=== PATIENT | female | born 1960 | race African-American/Black ===

== ENCOUNTER 2016-12-25 15:40 | Emergency (ER) | payer OTHER ==
[2016-12-25] MEDS ORDERED: Dexamethasone 10 MG/ML VIAL ONE (17:10)
[2016-12-25] MEDS ORDERED: Ketorolac Tromethamine 30 MG/ML VIAL ONE (17:10)
[2016-12-25 17:58] LABS: #Basophils 0.1 thou/uL (0.0-0.2); #Eosinphils 0.3 thou/uL (0.0-0.7); #Lymphocytes 2.9 thou/uL (1.20-3.40); #Monocytes 0.8 thou/uL (0.11-0.59); #Neutrophils 3.4 thou/uL (1.40-6.50); %Basophils 1.7 % (0.0-1.0); %Eosinophils 3.5 % (0.0-10.0); %Lymphocytes 39.1 % (21.0-51.0); %Monocytes 10.7 % (0.0-10.0); Hematocrit 40.8 % (36.0-47.0); Mean Platelet Volume 8.4 fL (7.4-10.4); Red Blood Cell (RBC) Count 4.33 mill/uL (4.20-5.40); White Blood Cell (WBC) Count 7.5 thou/uL (4.8-10.8)
[2016-12-25 18:08] LABS: ALT (SGPT) 15 U/L (8-55); AST (SGOT) 24 U/L (5-34); Alkaline Phosphatase 119 U/L (40-150); Anion Gap 17 mmol/L (10-20); BUN (Urea Nitrogen) 22 mg/dL (9.8-20.1); Bilirubin, Total 0.2 mg/dL (0.2-1.2); Calc. Creatinine Clearance 0 mL/min (70-130); Calcium 9.7 mg/dL (7.8-10.44); Carbon Dioxide 25 mmol/L (22-29); Chloride 100 mmol/L (98-107); Estimated GFR-MDRD 72; Globulin 4.3 g/dL (2.4-3.5); Magnesium 2.6 mg/dL (1.6-2.6); Protein, Total 8.6 g/dL (6.0-8.3)
[2016-12-25 18:55] LABS: Bilirubin Negative (Negative); Blood, Urine Negative (Negative); Glucose, Urine (Dipstick) Negative (Negative); Ketone, Urine Negative (Negative); Nitrite Negative (Negative); Protein, Urine (Dipstick) Negative (Neg-Trace); Urobilinogen 0.2 mg/dL (0.2-1.0)
[2016-12-25] MEDS ORDERED: Diazepam 5 MG TAB ONE (19:14)
--- NOTE | 2016-12-25 19:35 | RAD ---
RADIOGRAPH LUMBAR SPINE 3 VIEWS: DATE: 12/25/2016 HISTORY: A 56-year-old female with low back pain and right lumbar radiculopathy. COMPARISON: 02/19/2012 FINDINGS: There are five lumbar type vertebrae. No major scoliosis. Vertebral body heights are maintained. There is straightening of the lumbar lordosis. Mild to moderate disk space narrowing at L3-L4 with small endpoint marginal osteophytes. Mild to moderate disk space narrowing at L5-S1. No interval c hange overall. IMPRESSION: 1. Loss of lordosis, suggestive of muscle spasm. 2. Modest degenerative disk changes at L3-L4 and at L5-S1. FRANCIS [] POS: [facility]
--- NOTE | 2016-12-25 20:39 | ULT ---
ULTRASOUND WITH DOPPLER DUPLEX VENOUS LOWER EXTREMITY RIGHT: HISTORY: A 56-year-old female with right lower extremity pain. TECHNIQUE: Color flow Doppler, spectral waveform analysis of pulsed Doppler, and stephens-scale imaging with compre ssion and augmentation, were used to evaluate the right common femoral, femoral, popliteal, posterio r tibial, and superficial femoral, veins; and the proximal portions of the profunda femoral and grea ter saphenous, veins. FINDINGS: There is normal compressibility, demonstration of blood flow by color Doppler and pulsed Doppler, an d response to augmentation, in all interrogated veins. IMPRESSION: Negative. No deep vein thrombosis in the right lower extremity. jn [] POS: [facility]
== END 2016-12-25 19:56 | disposition home or self-care (01) ==
LOC: ERS 15:40
DX: M54.16 Radiculopathy, lumbar region (principal); E78.5 Hyperlipidemia, unspecified; E11.9 Type 2 diabetes mellitus without complications; F41.9 Anxiety disorder, unspecified; F32.9 Major depressive disorder, single episode, unspecified; G62.9 Polyneuropathy, unspecified; G43.909 Migraine, unspecified, not intractable, without status migrainosus; I10 Essential (primary) hypertension; Z79.82 Long term (current) use of aspirin; Z79.84 Long term (current) use of oral hypoglycemic drugs; Z79.899 Other long term (current) drug therapy
CPT/HCPCS: 36415; 72100; 80053; 81003; 83735; 85025; 85379; 86140; 96361; 96374; 96375; J1100; J1885; J2270

== ENCOUNTER 2017-04-18 16:10 | Emergency (ER) | payer OTHER ==
[2017-04-18 16:39] LABS: #Basophils 0.2 thou/uL (0.0-0.2); #Eosinphils 0.2 thou/uL (0.0-0.7); #Lymphocytes 3.6 thou/uL (1.20-3.40); #Monocytes 0.6 thou/uL (0.11-0.59); #Neutrophils 3.5 thou/uL (1.40-6.50); %Basophils 2.2 % (0.0-1.0); %Eosinophils 2.6 % (0.0-10.0); %Lymphocytes 44.2 % (21.0-51.0); %Monocytes 7.5 % (0.0-10.0); %Neutrophils 43.4 % (42.0-75.0); Hemoglobin 14.4 g/dL (12.0-16.0); Mean Corpuscular HGB CONC 32.2 g/dL (32.0-36.0); Mean Corpuscular Hemoglobin 30.6 pg (27.0-31.0); Mean Platelet Volume 8.8 fL (7.4-10.4); Platelet Count 260 thou/uL (130-400); RBC Distribution Width 12.1 % (11.5-14.5)
[2017-04-18 17:00] LABS: ALT (SGPT) 13 U/L (8-55); AST (SGOT) 19 U/L (5-34); Alkaline Phosphatase 107 U/L (40-150); Anion Gap 14 mmol/L (10-20); BUN (Urea Nitrogen) 11 mg/dL (9.8-20.1); Bilirubin, Total 0.4 mg/dL (0.2-1.2); Calc. Creatinine Clearance 0 mL/min (70-130); Calcium 10.5 mg/dL (7.8-10.44); Carbon Dioxide 25 mmol/L (22-29); Chloride 102 mmol/L (98-107); Estimated GFR-MDRD 77; Globulin 4.2 g/dL (2.4-3.5); Glucose 76 mg/dL (70-105); Potassium 3.7 mmol/L (3.5-5.1); Protein, Total 9.2 g/dL (6.0-8.3); Sodium 137 mmol/L (136-145)
[2017-04-18 17:09] LABS: Bilirubin Negative (Negative); Blood, Urine Negative (Negative); Clarity CLEAR (Clear); Glucose, Urine (Dipstick) Negative (Negative); Leukocyte Small (Negative); Nitrite Negative (Negative); Protein, Urine (Dipstick) Negative (Neg-Trace); Specific Gravity, Urine 1.024 (1.002-1.036); Urobilinogen 0.2 mg/dL (0.2-1.0); pH, Urine 5.5 (5.0-9.0)
[2017-04-18 17:13] LABS: Bacteria/HPF Rare-Few HPF (None Seen); Hyaline Casts/LPF 0-3 HYALINE CAST LPF (0-3 Hyaline); RBC/HPF 0-3 HPF (0-3)
[2017-04-18] MEDS ORDERED: Mag-Al 1200 mg/1200 mg/30 ML UDCUP ONE (19:32)
[2017-04-18] MEDS ORDERED: HYDROcodone/Acetaminophen 10/325 mg Tablet ONE (19:32)
[2017-04-18] MEDS ORDERED: Lidocaine Viscous Sol 2% 15 ml UD Cup ONE (19:49)
== END 2017-04-18 20:15 | disposition home or self-care (01) ==
LOC: ERS 16:10
DX: K21.9 Gastro-esophageal reflux disease without esophagitis (principal); E11.40 Type 2 diabetes mellitus with diabetic neuropathy, unspecified; E78.5 Hyperlipidemia, unspecified; I10 Essential (primary) hypertension; F41.9 Anxiety disorder, unspecified; F32.9 Major depressive disorder, single episode, unspecified
CPT/HCPCS: 36415; 80053; 81003; 81015; 83690; 85025; 87086

== ENCOUNTER 2017-04-19 13:51 | Emergency (ER) | payer OTHER ==
[2017-04-19] MEDS ORDERED: ISOVUE-370 76%-LOCM 1 ML ONE (14:30)
[2017-04-19] MEDS ORDERED: Ondansetron ODT 4 MG TAB ONE (15:50)
[2017-04-19 17:28] LABS: #Basophils 0.2 thou/uL (0.0-0.2); #Eosinphils 0.3 thou/uL (0.0-0.7); #Lymphocytes 3.5 thou/uL (1.20-3.40); #Monocytes 0.6 thou/uL (0.11-0.59); #Neutrophils 3.4 thou/uL (1.40-6.50); %Basophils 2.5 % (0.0-1.0); %Eosinophils 3.2 % (0.0-10.0); %Lymphocytes 44.2 % (21.0-51.0); %Monocytes 7.2 % (0.0-10.0); %Neutrophils 42.9 % (42.0-75.0); Hemoglobin 13.7 g/dL (12.0-16.0); Mean Corpuscular HGB CONC 32.4 g/dL (32.0-36.0); Mean Corpuscular Hemoglobin 30.5 pg (27.0-31.0); Mean Corpuscular Volume 94.3 fl (81.0-99.0); Mean Platelet Volume 8.9 fL (7.4-10.4); Platelet Count 283 thou/uL (130-400); RBC Distribution Width 12.2 % (11.5-14.5); Red Blood Cell (RBC) Count 4.47 mill/uL (4.20-5.40); White Blood Cell (WBC) Count 7.9 thou/uL (4.8-10.8)
[2017-04-19 17:50] LABS: ALT (SGPT) 12 U/L (8-55); AST (SGOT) 22 U/L (5-34); Alkaline Phosphatase 95 U/L (40-150); Anion Gap 11 mmol/L (10-20); BUN (Urea Nitrogen) 12 mg/dL (9.8-20.1); Bilirubin, Total 0.3 mg/dL (0.2-1.2); Calc. Creatinine Clearance 0 mL/min (70-130); Calcium 10.2 mg/dL (7.8-10.44); Carbon Dioxide 33 mmol/L (22-29); Chloride 98 mmol/L (98-107); Estimated GFR-MDRD 76; Globulin 4.4 g/dL (2.4-3.5); Glucose 84 mg/dL (70-105); Lipase 54 U/L (8-78); Potassium 3.7 mmol/L (3.5-5.1); Protein, Total 9.4 g/dL (6.0-8.3); Sodium 138 mmol/L (136-145)
[2017-04-19] MEDS ORDERED: Mag-Al 1200 mg/1200 mg/30 ML UDCUP ONE (18:49)
[2017-04-19] MEDS ORDERED: Lidocaine 2% PF 100 mg/5 ml Syringe ONE (18:50)
[2017-04-19] MEDS ORDERED: Lidocaine Viscous Sol 2% 15 ml UD Cup ONE (18:50)
--- NOTE | 2017-04-19 19:40 | CT ---
CT ABDOMEN AND PELVIS WITH CONTRAST: 04/19/17 Multiple axial tomograms obtained through the abdomen and pelvis with IV enhancement. HISTORY: Abdominal pain. FINDINGS: The lung bases are clear. The liver, spleen, and pancreas are unremarkable. Adrenal glands and kidneys are unremarkable. No arik dence of hydronephrosis. Urinary bladder unremarkable. No urinary tract calculus seen. Small bowel loops appear normal. Appendix appears normal. Prominent stool in the right and transverse colon. The left colon is poorly distended. There are a few scattered diverticula. No definite CT arik dence of diverticulitis identified. Aorta is normal caliber. Images through the pelvis show unremarkable uterus and adnexa. IMPRESSION: No acute process identified. POS: [facility]
== END 2017-04-19 19:01 | disposition home or self-care (01) ==
LOC: ERS 13:51
DX: K29.70 Gastritis, unspecified, without bleeding (principal); E11.40 Type 2 diabetes mellitus with diabetic neuropathy, unspecified; E78.5 Hyperlipidemia, unspecified; I10 Essential (primary) hypertension; F41.9 Anxiety disorder, unspecified; F32.9 Major depressive disorder, single episode, unspecified; Z79.82 Long term (current) use of aspirin; Z79.899 Other long term (current) drug therapy; Z79.84 Long term (current) use of oral hypoglycemic drugs
CPT/HCPCS: 36415; 74177; 80053; 81003; 81015; 83690; 85025; 87086; 96360; 99284; J2001; Q0162

== ENCOUNTER 2017-04-21 14:20 | Emergency (ER) | payer OTHER ==
[2017-04-21] MEDS ORDERED: Metoprolol Tartrate 5 MG/5 ML VIAL ONE (15:12)
[2017-04-21] MEDS ORDERED: hydrALAZINE 20 MG/ML VIAL ONE (15:15)
--- NOTE | 2017-04-21 15:23 | RAD ---
CHEST 1 VIEW: Date: 04/21/17 HISTORY: Chest pain. COMPARISON: 04/18/15. FINDINGS: Portable upright chest demonstrates a normal cardiac silhouette. Pulmonary vessels and hilum are norm al. Costophrenic angles are clear. No mass. No consolidation. No pneumothorax or osseous abnormalitie s. IMPRESSION: No acute cardiopulmonary process. POS: [facility]
[2017-04-21 15:35] LABS: #Basophils 0.1 thou/uL (0.0-0.2); #Eosinphils 0.2 thou/uL (0.0-0.7); #Lymphocytes 2.8 thou/uL (1.20-3.40); #Monocytes 0.4 thou/uL (0.11-0.59); #Neutrophils 3.1 thou/uL (1.40-6.50); %Basophils 1.8 % (0.0-1.0); %Eosinophils 2.9 % (0.0-10.0); %Lymphocytes 42.5 % (21.0-51.0); %Monocytes 6.6 % (0.0-10.0); %Neutrophils 46.2 % (42.0-75.0); Hemoglobin 13.4 g/dL (12.0-16.0); Mean Corpuscular HGB CONC 32.7 g/dL (32.0-36.0); Mean Corpuscular Hemoglobin 30.9 pg (27.0-31.0); Mean Corpuscular Volume 94.5 fl (81.0-99.0); Mean Platelet Volume 9.6 fL (7.4-10.4); Platelet Count 265 thou/uL (130-400); RBC Distribution Width 12.3 % (11.5-14.5); Red Blood Cell (RBC) Count 4.34 mill/uL (4.20-5.40); White Blood Cell (WBC) Count 6.7 thou/uL (4.8-10.8)
[2017-04-21 16:00] LABS: CKMB 0.6 ng/mL (0-6.6); Troponin I Less than 0.010 ng/mL (< 0.028)
[2017-04-21 17:10] LABS: Albumin 4.5 g/dL (3.5-5.0)
[2017-04-21 17:11] LABS: Chloride 104 mmol/L (98-107); Potassium 3.9 mmol/L (3.5-5.1); Sodium 140 mmol/L (136-145)
[2017-04-21 17:13] LABS: Globulin 3.8 g/dL (2.4-3.5); Glucose 85 mg/dL (70-105); Protein, Total 8.3 g/dL (6.0-8.3)
[2017-04-21 17:14] LABS: Anion Gap 13 mmol/L (10-20); Bilirubin, Total 0.4 mg/dL (0.2-1.2); Carbon Dioxide 27 mmol/L (22-29)
[2017-04-21 17:15] LABS: Alkaline Phosphatase 71 U/L (40-150)
[2017-04-21 17:16] LABS: Calc. Creatinine Clearance 0 mL/min (70-130); Estimated GFR-MDRD 86
[2017-04-21 17:17] LABS: BUN (Urea Nitrogen) 9 mg/dL (9.8-20.1)
[2017-04-21 17:18] LABS: ALT (SGPT) 12 U/L (8-55); AST (SGOT) 19 U/L (5-34)
[2017-04-21 17:19] LABS: Lipase 33 U/L (8-78)
[2017-04-21] MEDS ORDERED: Mag-Al 1200 mg/1200 mg/30 ML UDCUP ONE (17:44)
[2017-04-21] MEDS ORDERED: Lidocaine Viscous Sol 2% 15 ml UD Cup ONE (17:44)
== END 2017-04-21 18:24 | disposition home or self-care (01) ==
LOC: ERS 14:20
DX: R11.2 Nausea with vomiting, unspecified (principal); R19.7 Diarrhea, unspecified; R07.9 Chest pain, unspecified; E11.40 Type 2 diabetes mellitus with diabetic neuropathy, unspecified; E78.5 Hyperlipidemia, unspecified; I10 Essential (primary) hypertension; F41.9 Anxiety disorder, unspecified; F32.9 Major depressive disorder, single episode, unspecified; Z79.84 Long term (current) use of oral hypoglycemic drugs; Z79.899 Other long term (current) drug therapy; Z79.82 Long term (current) use of aspirin
CPT/HCPCS: 36415; 71045; 80053; 82553; 83690; 84484; 85025; 93005; 96374; J0360

== ENCOUNTER 2017-04-22 01:47 | Emergency (ER) | payer OTHER ==
[2017-04-22] MEDS ORDERED: Ketorolac Tromethamine 30 MG/ML VIAL ONE (02:44)
[2017-04-22] MEDS ORDERED: Metoclopramide HCl 10 MG/2 ML VIAL ONE (02:44)
[2017-04-22] MEDS ORDERED: diphenhydrAMINE 50 MG/ML VIAL ONE (02:44)
== END 2017-04-22 04:35 | disposition home or self-care (01) ==
LOC: ERS 01:47
DX: R51 Headache (principal); E11.40 Type 2 diabetes mellitus with diabetic neuropathy, unspecified; E78.5 Hyperlipidemia, unspecified; I10 Essential (primary) hypertension; F31.9 Bipolar disorder, unspecified; F20.9 Schizophrenia, unspecified; Z79.84 Long term (current) use of oral hypoglycemic drugs; Z79.82 Long term (current) use of aspirin; Z79.899 Other long term (current) drug therapy; R11.2 Nausea with vomiting, unspecified; R19.7 Diarrhea, unspecified; R07.9 Chest pain, unspecified; F41.9 Anxiety disorder, unspecified; F32.9 Major depressive disorder, single episode, unspecified
CPT/HCPCS: 36415; 71045; 80053; 82553; 83690; 84484; 85025; 93005; 96365; 96374; 96375; J0360; J1200; J1885; J2765

== ENCOUNTER 2017-07-22 17:52 | Observation (INO) | payer OTHER ==
[2017-07-22 18:24] VITALS: BMI 31.1
[2017-07-22] MEDS ORDERED: Ondansetron ODT 4 MG TAB PO PRN (18:28)
[2017-07-22] MEDS ORDERED: Ondansetron HCl/PF 4 MG/2 ML Vial SLOW IVP PRN (18:32)
[2017-07-22] MEDS ORDERED: Nitroglycerin 0.4 MG TAB (25 Tab Bottle) SL PRN (18:33)
[2017-07-22] MEDS ORDERED: Acetaminophen 500 MG TAB PO PRN (18:33)
--- NOTE | 2017-07-22 18:58 | PDOC.EVN ---
Attending Addendum - Attending Addendum Date/Time: 07/22/17 1794 I personally evaluated the patient and discussed the management with Dr. Houston/ Haim. I agree with the History, Examination, Assessment and Plan documented in the H& P with any addition or exceptions noted below. Patient is 56 yo AAF with suspected history of CAD, HTN, T2DM who presents as direct admission from our clinic today. Patient with history of heart catheterization that was aborted due to patient description of "nerve injury" several years ago. She reports that over the last few months she has been having sharp, intermittent, left sided chest pain with radiation to L arm. Reports that this is associated with nausea, dizziness, and palpitations. She reports that the pain usually occurs at rest, never on exertion. Reports that it is improved with Nitro but not resolved, and reports having to use Nitro tabs 4x over the last 1 month. Reports that symptoms have been worsening over the last couple of weeks. She reports that her DM and HTN are well controlled. Patient had EKG in clinic that apparently showed possible ischemia and so was sent over for further evaluation. Vital signs and lab studies are pending at this time, as is EKG. Her telemetry strip appears normal. Patient will be admitted as observation status to telemetry. Would perform enzyme and EKG rule out for this atypical chest pain with concern for anginal type symptoms. Recommend stress testing in AM if overnight testing normal. Further management including cardiology consult pending results of current studies unless she has onset of chest pain or abnormal diagnostics, at which point I would begin treating with th. lovenox and antiplatelet therapy.
[2017-07-22 19:18] LABS: #Basophils 0.1 thou/uL (0.0-0.2); #Eosinphils 0.2 thou/uL (0.0-0.7); #Lymphocytes 3.1 thou/uL (1.20-3.40); #Monocytes 0.6 thou/uL (0.11-0.59); %Basophils 1.6 % (0.0-1.0); %Lymphocytes 38.2 % (21.0-51.0); %Neutrophils 50.2 % (42.0-75.0); Hemoglobin 12.7 g/dL (12.0-16.0); Mean Corpuscular HGB CONC 33.5 g/dL (32.0-36.0); Mean Corpuscular Hemoglobin 30.9 pg (27.0-31.0); Mean Corpuscular Volume 92.1 fl (81.0-99.0); Mean Platelet Volume 8.5 fL (7.4-10.4); Platelet Count 268 thou/uL (130-400); RBC Distribution Width 12.3 % (11.5-14.5)
--- NOTE | 2017-07-22 19:38 | PDOC.FPRHP ---
- History of Present Illness Chief Complaint: Chest pain, nausea, dizziness, palpitations History of Present Illness: 56 yo F w/ PMH of DMII, HTN, HLD, GERD, AJITH and depression presents as direct admit from [facility] for evaluation of atypical chest pain and possible EKG changes. Pt reports left sided chest pain that she describes as sharp and intermittent with radiation into her left arm for the last two weeks, non-exertional, and not relieved by rest or worsened by physical activity. She reports these symptoms happen when at rest and are mildly relieved with nitro. She normally takes nitro 1-2x/month but has taken 4 nitro over the last month 2/2 the above symptoms. Also reports some associated sob, dizziness, palpitations and nausea. She denies diphoresis. Does endorse a dry cough over the same time period which she attributes to allergies. Denies pleuritic type chest pain, diarrhea, constipation, fever, chills, sweats, headache, changes in vision. ED Course: NA - Allergies/Adverse Reactions Allergies Allergy/AdvReac Type Severity Reaction Status Date / Time cheese Allergy Verified 04/18/15 20:16 Penicillins Allergy Verified 04/18/15 20:16 - Home Medications Medication Instructions Recorded Confirmed Type Sertraline HCl [Zoloft] 100 mg PO DAILY 08/11/13 07/22/17 History Atorvastatin Calcium [Lipitor] 40 mg PO HS 04/18/15 07/22/17 History metFORMIN HCl 1,000 mg PO BID-WM 04/18/15 07/22/17 History Aspirin 81 mg PO DAILY #0 tab 04/22/15 07/22/17 Rx Gabapentin 600 mg PO TID #0 tablet 04/22/15 07/22/17 Rx Lisinopril/Hydrochlorothiazide 1 tablet PO DAILY #30 tablet 04/22/15 07/22/17 Rx [Lisinopril-Hctz 20-25 mg Tab] Pantoprazole [Protonix] 40 mg PO DAILY #30 tab 04/22/15 07/22/17 Rx - History PMHx: HTN, HLD, DMII, Tranaminitis, AJITH, Depression, Neuropathy PSHx: Pat, elective ab FHx: Paternal MD @ 51, Maternal Ca unknown type Social: Non-smoker, social alcohol, denies drugs - Review of Systems General: denies: fever/chills, weight/appetite/sleep changes, fatigue Eyes: denies: eye pain, vision changes ENT: denies: nasal congestion, rhinorrhea Respiratory: reports: cough, congestion, shortness of breath, exercise intolerance Cardiovascular: reports: chest pain, palpitation. denies: edema Gastrointestinal: reports: nausea. denies: vomiting, diarrhea, constipation, abdominal pain Skin: denies: rashes, lesions Musculoskeletal: reports: pain. denies: tenderness, swelling, arthritis/ arthralgias Neurological: reports: other (paresthesias RLE). denies: numbness, syncope, weakness - Vital signs BP: 127/57 HR: 61 RR: 12 Tmax: 97.6 Pox: 99% on RA Wt: 88Kg - Physical Exam Constitutional: NAD, awake, alert and oriented HEENT: normocephalic and atraumatic, PERRLA, EOMI, conjunctiva clear, no scleral icterus, grossly normal vision, grossly normal hearing, MMM, oropharynx clear Neck: supple, FROM, trachea midline, no JVD, no thyromegaly Chest: no-tender to palpation Heart: RRR, normal S1/S2, no murmurs/rubs/gallops, pulses present, no edema Lungs: CTAB, no respiratory distress, good air movement, no rales/rhonchi, no wheezing, no retractions Abdomen: soft, non-tender, bowel sounds present, no masses/distention Musculoskeletal: normal tone, ROM grossly normal Neurological: no focal deficit Skin: no rash/lesions, good turgor, capillary refill <2 seconds, no jaundice Heme/Lymphatic: no unusual bruising or bleeding, no petechia Psychiatric: normal mood and affect FMR H&P: Results - Labs Result Diagrams: 07/22/17 19:11 07/22/17 19:11 Lab results: WBC 8.0 thou/uL (4.8-10.8) 07/22/17 19:11 Hgb 12.7 g/dL (12.0-16.0) 07/22/17 19:11 Hct 37.8 % (36.0-47.0) 07/22/17 19:11 MCV 92.1 fl (81.0-99.0) 07/22/17 19:11 Plt Count 268 thou/uL (130-400) 07/22/17 19:11 Neutrophils % 50.2 % (42.0-75.0) 07/22/17 19:11 FMR H&P: A/P - Problem List (1) Atypical chest pain Current Visit: No Status: Acute Code(s): R07.89 - OTHER CHEST PAIN (2) Diabetes type 2, controlled Current Visit: No Status: Chronic Code(s): E11.9 - TYPE 2 DIABETES MELLITUS WITHOUT COMPLICATIONS (3) HTN (hypertension) Current Visit: No Status: Chronic Code(s): I10 - ESSENTIAL (PRIMARY) HYPERTENSION Qualifiers: Hypertension type: essential hypertension Qualified Code(s): I10 - Essential (primary) hypertension (4) HLD (hyperlipidemia) Current Visit: No Status: Chronic Code(s): E78.5 - HYPERLIPIDEMIA, UNSPECIFIED Qualifiers: Hyperlipidemia type: Pure hypercholesterolemia (5) GERD (gastroesophageal reflux disease) Current Visit: No Status: Chronic Code(s): K21.9 - GASTRO-ESOPHAGEAL REFLUX DISEASE WITHOUT ESOPHAGITIS (6) Anxiety Current Visit: No Status: Chronic Code(s): F41.9 - ANXIETY DISORDER, UNSPECIFIED - Plan 1) Atypical chest pain: Admit to tele obs. Significant risk factors. Will repeat EKG and get cxr, Trend cardiac enzymes and plan for AM stress test. NPO at midnight. Nitro prn for anginal type pain, daily ASA. 2) HTN: Continue home meds 3) HLD: Cont home meds 4) GERD: continue home meds 5) Anxiety: continue home medications 6) PPX: SCDs and Protonix for DVT and GI ppx, respectively 7) Code status: Pt wishes to be full code. Disposition/LOS: stable, </= 2 days FMR H&P: Upper Level - Pertinent history 56yo AAF with pmhx DM2, HTN, HLD, neuropathy, and GERD presents to [facility] as a direct admit from clinic at [facility] today due to concern for chest pain. Pt states she previously used NTG q month but over the last month has needed approx. 4 doses per month. States her chest pain always occurs at rest, never with exertion. Associated with radiation of pain into left arm with tingling. Symptoms are usually preceded by lightheadedness, nausea and palpitations. Has never experienced symptoms during exertion. Denies any prior MD or CAD hx, however does state that cardiology previously attempted catheterization which was aborted due to nerve injury during procedure. Family hx significant for paternal MD at age 52. Denies any tobacco abuse. HEART =3 - Pertinent findings Pertinent PE-- Gen- A&O, NAD CV- RRR, no MRG Lungs- CTAB Abd- soft, nt, nd LE- no edema MSK- RLE ttp due to nerve injury. no reproducible chest pain. Labs- pending CXR- pending EKG- pending - Plan Date/Time: 07/22/17 193 56yo AAF with pmhx DM2, HTN, HLD, GERD, neuropathy p/w- 1) Atypical Chest pain- obs in tele overnight. Check EKG, Ghassan, and risk stratify. HEART = 3. Will plan for Stress in AM unless pt develops anginal symptoms and will then place patient on anticoagulation + antiplatelet therapy at that time & consult cards. Tx with ASA now, prn ntg. NPO @ mn pending stress. 2) HTN- continue home rx 3) HLD- continue high intensity statin 4) DM2- continue rx, CC diet 5) GERD- continue PPI I, [Rosa Whitmore DO ([email or web address])], have evaluated this patient and agree with findings/plan as outlined by communications marketing intern resident. Pertinent changes/additions are listed here.
[2017-07-22 19:39] LABS: ALT (SGPT) 23 U/L (8-55); AST (SGOT) 22 U/L (5-34); Albumin 4.7 g/dL (3.5-5.0); Alkaline Phosphatase 82 U/L (40-150); Anion Gap 13 mmol/L (10-20); BUN (Urea Nitrogen) 12 mg/dL (9.8-20.1); Bilirubin, Total 0.6 mg/dL (0.2-1.2); Calc. Creatinine Clearance 97 mL/min (70-130); Calcium 10.3 mg/dL (7.8-10.44); Carbon Dioxide 27 mmol/L (22-29); Chloride 101 mmol/L (98-107); Estimated GFR-MDRD 80; Globulin 4.2 g/dL (2.4-3.5); Glucose 88 mg/dL (70-105); Potassium 3.8 mmol/L (3.5-5.1); Protein, Total 8.9 g/dL (6.0-8.3); Sodium 137 mmol/L (136-145)
[2017-07-22 19:42] LABS: CKMB 0.5 ng/mL (0-6.6); Troponin I Less than 0.010 ng/mL (< 0.028)
[2017-07-22] MEDS ORDERED: Aspirin 325 mg Enteric Coated Tablet PO SCH (20:15)
[2017-07-22] MEDS: Gabapentin 300 MG CAP PO SCH (21:19)
[2017-07-22] MEDS: Atorvastatin Calcium 40 MG TAB PO SCH (21:26)
--- NOTE | 2017-07-22 21:50 | RAD ---
AP VIEW OF THE CHEST: 07/22/17 INDICATION: Atypical chest pain. COMPARISON: Prior exam dated 04/21/17. IMPRESSION: No acute cardiopulmonary abnormality. The examination is not appreciably changed fro the comparison s cristhian. POS: [facility]
[2017-07-22 22:19] LABS: CKMB 0.5 ng/mL (0-6.6); Troponin I Less than 0.010 ng/mL (< 0.028)
[2017-07-23 01:08] LABS: CKMB 0.4 ng/mL (0-6.6); Troponin I Less than 0.010 ng/mL (< 0.028)
--- NOTE | 2017-07-23 05:59 | PDOC.FM ---
- Subjective Subjective: Patient is doing well this morning. She reports continued episodes of CP overnight that lasted 15-30min and then resolved. She denies abdominal pain, N/ V, diaphoresis, or SOB during events. No acute events overnight. - Objective MAR Reviewed: Yes Vital Signs & Weight: Vital Signs (12 hours) Temp Pulse Resp BP Pulse Ox 07/23/17 03:55 97.8 F 56 L 20 106/51 L 93 L 07/22/17 23:50 54 L 18 108/60 96 07/22/17 21:20 97.6 F 61 12 07/22/17 18:20 97.6 F 61 12 127/57 L 99 Weight Weight 87.543 kg I&O: 07/21/17 07/22/17 07/23/17 06:59 06:59 06:59 Intake Total 600 Balance 600 Result Diagrams: 07/22/17 19:11 07/22/17 19:11 <Melany Oliva - Last Filed: 07/23/17 10:41> - Objective Vital Signs & Weight: Vital Signs (12 hours) Temp Pulse Resp BP BP Pulse Ox 07/23/17 08:22 56 L 157/74 H 07/23/17 07:28 97.8 F 56 L 20 07/23/17 07:17 97.6 F 54 L 12 157/74 H 98 07/23/17 03:55 97.8 F 56 L 20 106/51 L 93 L 07/22/17 23:50 54 L 18 108/60 96 Weight Weight 87.543 kg I&O: 07/22/17 07/23/17 07/24/17 06:59 06:59 06:59 Intake Total 600 Balance 600 Result Diagrams: 07/22/17 19:11 07/22/17 19:11 <Matt Loving R - Last Filed: 07/23/17 10:51> Phys Exam - Physical Examination Constitutional: NAD HEENT: moist MMs Respiratory: no wheezing, no rales, clear to auscultation bilateral Cardiovascular: RRR, no significant murmur no chest wall tenderness with palpation Gastrointestinal: soft, non-tender, positive bowel sounds Musculoskeletal: no edema, pulses present Neurological: non-focal Psychiatric: normal affect, A&O x 3 <Melany Oliva - Last Filed: 07/23/17 10:41> Dx/Plan (1) Atypical chest pain Code(s): R07.89 - OTHER CHEST PAIN Status: Acute (2) Anxiety Code(s): F41.9 - ANXIETY DISORDER, UNSPECIFIED Status: Chronic (3) Depression Code(s): F32.9 - MAJOR DEPRESSIVE DISORDER, SINGLE EPISODE, UNSPECIFIED Status : Chronic (4) Diabetes mellitus Code(s): E11.9 - TYPE 2 DIABETES MELLITUS WITHOUT COMPLICATIONS Status: Chronic (5) GERD (gastroesophageal reflux disease) Code(s): K21.9 - GASTRO-ESOPHAGEAL REFLUX DISEASE WITHOUT ESOPHAGITIS Status: Chronic (6) HLD (hyperlipidemia) Code(s): E78.5 - HYPERLIPIDEMIA, UNSPECIFIED Status: Chronic QualifierTitle: Hyperlipidemia type: Pure hypercholesterolemia (7) HTN (hypertension) Code(s): I10 - ESSENTIAL (PRIMARY) HYPERTENSION Status: Chronic QualifierTitle: Hypertension type: essential hypertension Qualified Code( s): I10 - Essential (primary) hypertension - Plan Plan: Atypical chest pain: - CAD vs GERD, significant risk factors with Fhx and DM, HTN, HLD - Trops negative x3, EKG wnl - stress test this AM, NPO until after - continue daily ASA HTN: - Well controlled, actually borderline hypotensive, but asymptomatic - Patient reports home BP's 120's/80's. - Continue current medication and evaluate outpatient for possiblity of decreasing home meds. Isolated events of hypotensive BP not enough to change BP at this time. HLD: - FLP to risk stratify - Cont home meds GERD: - not taking home medications for some time - restart home protonix Anxiety: - continue home medications <Melany Oliva - Last Filed: 07/23/17 10:41> Attending Addendum - Attending Addendum Date/Time: 07/23/17 1051 I personally evaluated the patient and discussed the management with Dr. Oliva. I agree with the History, Examination, Assessment and Plan documented above with any addition or exceptions noted below. Patient here with atypical chest pain. Her enzyme rule out has been negative. She is scheduled for nuclear stress testing this morning. If negative, can discharge home with resumption of GERD medications. If positive, will consult Cardiology. Dispo pending stress test result. <Matt Loving R - Last Filed: 07/23/17 10:51>
[2017-07-23 06:48] LABS: Cardiac Risk 4.3 (Less than 4.5)
[2017-07-23] MEDS: metFORMIN 500 MG TAB PO SCH ×2 (07:35→16:36)
[2017-07-23] MEDS: Gabapentin 300 MG CAP PO SCH ×3 (07:35→20:06)
[2017-07-23] MEDS: Aspirin 325 MG TAB PO SCH (08:22)
[2017-07-23] MEDS ORDERED: Lisinopril/Hydrochlorothiazide 20/25 mg Tablet PO SCH (09:00)
[2017-07-23] MEDS ORDERED: Aspirin 325 MG TAB PO SCH (09:00)
[2017-07-23] MEDS ORDERED: Enoxaparin Sodium 40 MG/0.4 ML SYRINGE SC SCH (09:00)
[2017-07-23] MEDS: Atorvastatin Calcium 40 MG TAB PO SCH (20:06)
[2017-07-24] MEDS: metFORMIN 500 MG TAB PO SCH (07:00)
--- NOTE | 2017-07-24 07:49 | PDOC.FM ---
- Subjective Subjective: Patient is doing well this morning. She was to get a stress test yesterday but had an episode of hypotension while there in the 80's systolic. She reports she did feel dizzy at that time and had been nauseated yesterday morning. She denies any other episodes of dizziness overnight, although reports occasionally when she stands over the last 2 weeks. She reports her CP has resovled. - Objective MAR Reviewed: Yes Vital Signs & Weight: Vital Signs (12 hours) Temp Pulse Resp BP Pulse Ox 07/24/17 07:17 98.2 F 59 L 16 07/24/17 05:28 94 L 07/24/17 04:00 98.2 F 59 L 16 128/66 94 L 07/23/17 23:30 118/59 L 07/23/17 20:08 98.3 F 60 12 Weight Weight 89.358 kg I&O: 07/23/17 07/24/17 07/25/17 06:59 06:59 06:59 Intake Total 600 1450 Output Total 650 Balance 600 800 Result Diagrams: 07/22/17 19:11 07/22/17 19:11 <Melany Oliva - Last Filed: 07/24/17 07:48> - Objective Vital Signs & Weight: Vital Signs (12 hours) Temp Pulse Resp BP Pulse Ox 07/24/17 10:23 59 L 07/24/17 07:17 98.2 F 59 L 16 07/24/17 07:15 98.1 F 65 18 120/68 92 L 07/24/17 05:28 94 L 07/24/17 04:00 98.2 F 59 L 16 128/66 94 L 07/23/17 23:30 118/59 L Weight Weight 89.358 kg I&O: 07/23/17 07/24/17 07/25/17 06:59 06:59 06:59 Intake Total 600 1450 Output Total 650 Balance 600 800 Result Diagrams: 07/22/17 19:11 07/22/17 19:11 <Matt Loving - Last Filed: 07/24/17 10:54> Phys Exam - Physical Examination Constitutional: NAD Respiratory: no wheezing, no rales, clear to auscultation bilateral Cardiovascular: RRR, no significant murmur Gastrointestinal: soft Musculoskeletal: no edema, pulses present Neurological: moves all 4 limbs Psychiatric: normal affect, A&O x 3 <Melany Oliva - Last Filed: 07/24/17 07:48> Dx/Plan (1) Atypical chest pain Code(s): R07.89 - OTHER CHEST PAIN Status: Acute (2) Anxiety Code(s): F41.9 - ANXIETY DISORDER, UNSPECIFIED Status: Chronic (3) Depression Code(s): F32.9 - MAJOR DEPRESSIVE DISORDER, SINGLE EPISODE, UNSPECIFIED Status : Chronic (4) Diabetes mellitus Code(s): E11.9 - TYPE 2 DIABETES MELLITUS WITHOUT COMPLICATIONS Status: Chronic (5) GERD (gastroesophageal reflux disease) Code(s): K21.9 - GASTRO-ESOPHAGEAL REFLUX DISEASE WITHOUT ESOPHAGITIS Status: Chronic (6) HLD (hyperlipidemia) Code(s): E78.5 - HYPERLIPIDEMIA, UNSPECIFIED Status: Chronic QualifierTitle: Hyperlipidemia type: Pure hypercholesterolemia (7) HTN (hypertension) Code(s): I10 - ESSENTIAL (PRIMARY) HYPERTENSION Status: Chronic QualifierTitle: Hypertension type: essential hypertension Qualified Code( s): I10 - Essential (primary) hypertension (8) Hypotension Status: Acute - Plan Plan: Atypical chest pain: - CAD vs GERD, significant risk factors with Fhx and DM, HTN, HLD - Trops negative x3, EKG wnl - stress test this AM, NPO until after - continue daily ASA Hypotension: - has had borderline hypotension throughout her stay. - Will decrease home Lisinopril/HCTZ and monitor. HTN: - Patient reports home BP's 120's/80's - see above HLD: - FLP to risk stratify - Cont home meds GERD: - not taking home medications for some time - restart home protonix Anxiety: - continue home medications <Melany Oliva - Last Filed: 07/24/17 07:48> Attending Addendum - Attending Addendum Date/Time: 07/24/17 1053 I personally evaluated the patient and discussed the management with Dr. Oliva. I agree with the History, Examination, Assessment and Plan documented above with any addition or exceptions noted below. Patient doing well and has no chest pains. We are awaiting results of stress testing currently being performed. If negative, can discharge home with outpatient follow up at our clinic. If abnormal, will consult Cardiology. <Matt Loving R - Last Filed: 07/24/17 10:54>
[2017-07-24] MEDS ORDERED: Lisinopril/Hydrochlorothiazide 20 mg/12.5 mg Tablet PO SCH (09:00)
[2017-07-24] MEDS ORDERED: ADENOSINE 60 MG/20 ML VIAL ONE (09:47)
[2017-07-24] MEDS: Aspirin 325 MG TAB PO SCH (10:23)
[2017-07-24] MEDS: Gabapentin 300 MG CAP PO SCH ×2 (10:23→14:14)
--- NOTE | 2017-07-24 12:56 | NM ---
MYOCARDIAL PERFUSION STUDY: DATE: 07/24/17. HISTORY: Chest pain. RADIOPHARMACEUTICALS: 30 mCi Technetium 99m sestamibi, IV at stress, and 10 mCi Technetium 99m sestamibi, IV at rest. MEDICATIONS: 16.4 mL (49.3 mg) adenosine, IV. FINDINGS: There is normal uptake and distribution of radiotracer seen throughout the left ventricular myocardi um on both the resting and stress acquisitions. There is no significant reversible defect seen betwe en stress and resting acquisitions. Gated images show normal ventricular wall motion and wall thicke ingrid. The calculated left ventricular ejection fraction is 74%. The calculated left ventricular eje ction fraction on the prior study in 2009 was 59%. IMPRESSION: 1. Normal myocardial perfusion study without evidence of a reversible defect seen to suggest ischemi a. 2. Normal left ventricular ejection fraction of 74%. POS: [facility]
[2017-07-24 15:49] VITALS: BP 130/60; TEMP 98.6
--- NOTE | 2017-08-01 13:17 | EKG ---
Test Reason : TIMED Blood Pressure : / mmHG Vent. Rate : 064 BPM Atrial Rate : 064 BPM P-R Int : 208 ms QRS Dur : 108 ms QT Int : 424 ms P-R-T Axes : 015 -60 -13 degrees QTc Int : 437 ms Normal sinus rhythm Left axis deviation Incomplete right bundle branch block T wave abnormality, consider anterolateral ischemia Abnormal ECG When compared with ECG of 21-APR-2017 14:32, Incomplete right bundle branch block is now Present Criteria for Septal infarct are no longer Present Confirmed by DR. Cassandra MIRANDA ([id number]) on 08/01/2017 1:17:14 PM Referred By: KENAN Confirmed By:DR. Cassandra MIRANDA
== END 2017-07-24 17:03 | disposition home or self-care (01) ==
LOC: 2SW 17:52
PROVIDERS: ADMIT Student in an Organized Health Care Education/Training Program; ATTEND Student in an Organized Health Care Education/Training Program
DX: R07.89 Other chest pain (principal); E11.9 Type 2 diabetes mellitus without complications; I10 Essential (primary) hypertension; E78.5 Hyperlipidemia, unspecified; K21.9 Gastro-esophageal reflux disease without esophagitis; F41.9 Anxiety disorder, unspecified; Z79.899 Other long term (current) drug therapy; Z88.0 Allergy status to penicillin; Z91.018 Allergy to other foods; Z79.82 Long term (current) use of aspirin; Z79.84 Long term (current) use of oral hypoglycemic drugs
CPT/HCPCS: 36415; 36416; 71045; 78452; 80053; 80061; 82553; 84443; 84484; 85025; 93005; 93010; 93017; A9500; G0378; J0153; Q0162

== ENCOUNTER 2017-08-10 14:17 | Emergency (ER) | payer OTHER ==
[2017-08-10] MEDS ORDERED: Morphine 4 MG/ML VIAL ONE (16:03)
== END 2017-08-10 16:20 | disposition home or self-care (01) ==
LOC: ERS 14:17
DX: M54.31 Sciatica, right side (principal); E11.40 Type 2 diabetes mellitus with diabetic neuropathy, unspecified; E78.5 Hyperlipidemia, unspecified; F31.9 Bipolar disorder, unspecified; F41.9 Anxiety disorder, unspecified; F20.9 Schizophrenia, unspecified; I10 Essential (primary) hypertension; K21.9 Gastro-esophageal reflux disease without esophagitis
CPT/HCPCS: 96372; J2270

== ENCOUNTER 2017-09-02 14:37 | Inpatient (IN) | payer OTHER ==
[2017-09-02 15:23] LABS: #Basophils 0.1 thou/uL (0.0-0.2); #Eosinphils 0.2 thou/uL (0.0-0.7); #Lymphocytes 2.7 thou/uL (1.20-3.40); #Monocytes 0.7 thou/uL (0.11-0.59); #Neutrophils 5.1 thou/uL (1.40-6.50); %Basophils 1.5 % (0.0-1.0); %Eosinophils 2.3 % (0.0-10.0); %Lymphocytes 30.3 % (21.0-51.0); %Monocytes 8.1 % (0.0-10.0); %Neutrophils 57.8 % (42.0-75.0); Hemoglobin 12.6 g/dL (12.0-16.0); Mean Corpuscular HGB CONC 34.5 g/dL (32.0-36.0); Mean Corpuscular Hemoglobin 31.1 pg (27.0-31.0); Mean Corpuscular Volume 90.2 fL (78.0-98.0); Mean Platelet Volume 7.8 fL (7.4-10.4); Platelet Count 288 thou/uL (130-400); RBC Distribution Width 12.8 % (11.5-14.5); Red Blood Cell (RBC) Count 4.05 mill/uL (4.20-5.40); White Blood Cell (WBC) Count 8.8 thou/uL (4.8-10.8)
[2017-09-02 15:51] LABS: ALT (SGPT) 22 U/L (8-55); AST (SGOT) 23 U/L (5-34); Albumin 4.6 g/dL (3.5-5.0); Alkaline Phosphatase 79 U/L (40-150); Anion Gap 15 mmol/L (10-20); BUN (Urea Nitrogen) 17 mg/dL (9.8-20.1); Bilirubin, Total 0.4 mg/dL (0.2-1.2); Calc. Creatinine Clearance 0 mL/min (70-130); Calcium 9.9 mg/dL (7.8-10.44); Carbon Dioxide 26 mmol/L (22-29); Chloride 101 mmol/L (98-107); Estimated GFR-MDRD 45; Globulin 3.9 g/dL (2.4-3.5); Glucose 103 mg/dL (70-105); Potassium 3.4 mmol/L (3.5-5.1); Protein, Total 8.5 g/dL (6.0-8.3); Sodium 139 mmol/L (136-145)
[2017-09-02 15:54] LABS: CKMB 0.9 ng/mL (0-6.6); Troponin I Less than 0.010 ng/mL (< 0.028)
--- NOTE | 2017-09-02 15:58 | CT ---
CT BRAIN WITHOUT CONTRAST: Comparison: 04-20-15 History: Speech difficulty and weakness for two days. Technique: Multiple contiguous axial images were obtained in a CT of the brain without contrast. FINDINGS: There are a few scattered hypodensities in the subcortical and periventricular white matter, likely s econdary to small vessel ischemic disease. No large confluent infarction is seen. There is no evidenc e of hydrocephalus, intracranial hemorrhage, or extraaxial fluid collection. The calvarium and overlying soft tissues are unremarkable. Fluid is seen in the bilateral mastoid air cells. IMPRESSION: No evidence of acute intracranial abnormality. POS: [facility]
--- NOTE | 2017-09-02 17:38 | PDOC.FPRHP ---
- History of Present Illness Chief Complaint: Rt sided weakness & can't talk History of Present Illness: 56yo AAF with pmhx HTN, HLD, DM2, GERD and anxiety/depression and a prior h/o rt femoral nerve injury presents with new onset rt sided weakness and difficulty speaking today. States she had been feeling mild right UE & LE weakness for the last 2 days but did not impair functioning until she was at grocery store with this morning. She endorsed new onset right foot drag due to weakness and inability to use right arm. Also has been unable to speak. Does not endorse difficulty swallowing or a choking history. who witnessed event stated she did not have facial droop, drooling or slurred speech , but that her speech slowed and she had to think for a while prior to speaking. No prior h/o CVA or TIA. No family Hx CVA. No smoking hx. ED Course: CT head showing no acute CV event, given ASA - Allergies/Adverse Reactions Allergies Allergy/AdvReac Type Severity Reaction Status Date / Time cheese Allergy Verified 04/18/15 20:16 Penicillins Allergy Verified 04/18/15 20:16 - Home Medications Medication Instructions Recorded Confirmed Type Sertraline HCl [Zoloft] 100 mg PO DAILY 08/11/13 07/22/17 History Atorvastatin Calcium [Lipitor] 40 mg PO HS 04/18/15 07/22/17 History metFORMIN HCl 1,000 mg PO BID-WM 04/18/15 07/22/17 History Aspirin 81 mg PO DAILY #0 tab 04/22/15 07/22/17 Rx Gabapentin 600 mg PO TID #0 tablet 04/22/15 07/22/17 Rx Lisinopril/Hydrochlorothiazide 1 tablet PO DAILY #30 tablet 04/22/15 07/22/17 Rx [Lisinopril-Hctz 20-25 mg Tab] Pantoprazole [Protonix] 40 mg PO DAILY #30 tab 07/23/17 Rx - History PMHx: HTN, HLD, DM2, chronic RLE femoral neuropathy, GERD, anxiety/depression PSHx: cholecystectomy, elective w/ D&C FHx: CAD with paternal [place] in 50s Social: denies TAD - Review of Systems General: denies: fever/chills, weight/appetite/sleep changes, fatigue Eyes: denies: eye pain, vision changes ENT: denies: nasal congestion, rhinorrhea Respiratory: denies: cough, congestion, shortness of breath Cardiovascular: denies: chest pain, palpitation, edema Gastrointestinal: denies: nausea, vomiting, diarrhea, constipation, abdominal pain Genitourinary: denies: dysuria, polyuria Skin: denies: rashes, lesions Musculoskeletal: reports: pain, tenderness. denies: stiffness, swelling, arthritis/arthralgias Neurological: reports: weakness, other (difficulty speaking). denies: numbness , syncope, seizure Psychological: reports: anxiety, depression - Vital signs BP: [135/74] HR: [69] RR: [20] Tmax: [98.1] Pox: [96]% on [RA] Wt: [87kg] - Physical Exam Constitutional: NAD, awake, alert and oriented, well developed HEENT: normocephalic and atraumatic, PERRLA, EOMI, no scleral icterus, grossly normal hearing, normal nasal mucosa, oropharynx clear -HEENT: poor dentition, mildly dry mucus membranes. no facial asymmetry Neck: supple, trachea midline, no LAD, no JVD, no thyromegaly Chest: no lesions Heart: RRR, normal S1/S2, no murmurs/rubs/gallops, no edema Lungs: CTAB, no respiratory distress, good air movement, no rales/rhonchi, no wheezing, no retractions Abdomen: soft, non-tender, bowel sounds present, no masses/distention Musculoskeletal: normal structure, normal tone -Musculoskeletal: dec ROM & strength in RUE & RLE which appears to be due to poor pt effort. RLE pain with ROM Neurological: no focal deficit, CN II-XII intact -Neurological: dec sensation to RUE & RLE, difficult to obtain DTR in either LE Skin: no rash/lesions -Skin: mildly dry appearing skin Heme/Lymphatic: no unusual bruising or bleeding, no LAD Psychiatric: normal mood and affect, intact recent and remote memory FMR H&P: Results - Labs Result Diagrams: 09/02/17 15:15 09/02/17 15:15 Lab results: WBC 8.8 thou/uL (4.8-10.8) 09/02/17 15:15 Hgb 12.6 g/dL (12.0-16.0) 09/02/17 15:15 Hct 36.5 % (36.0-47.0) 09/02/17 15:15 MCV 90.2 fL (78.0-98.0) 09/02/17 15:15 Plt Count 288 thou/uL (130-400) 09/02/17 15:15 Neutrophils % 57.8 % (42.0-75.0) 09/02/17 15:15 Sodium 139 mmol/L (136-145) 09/02/17 15:15 Potassium 3.4 mmol/L (3.5-5.1) L 09/02/17 15:15 Chloride 101 mmol/L (98-107) 09/02/17 15:15 Carbon Dioxide 26 mmol/L (22-29) 09/02/17 15:15 BUN 17 mg/dL (9.8-20.1) 09/02/17 15:15 Creatinine 1.46 mg/dL (0.6-1.1) H 09/02/17 15:15 Glucose 103 mg/dL (70-105) 09/02/17 15:15 Calcium 9.9 mg/dL (7.8-10.44) 09/02/17 15:15 Total Bilirubin 0.4 mg/dL (0.2-1.2) 09/02/17 15:15 AST 23 U/L (5-34) 09/02/17 15:15 ALT 22 U/L (8-55) 09/02/17 15:15 Alkaline Phosphatase 79 U/L (40-150) 09/02/17 15:15 CK-MB (CK-2) 0.9 ng/mL (0-6.6) 09/02/17 15:15 Serum Total Protein 8.5 g/dL (6.0-8.3) H 09/02/17 15:15 Albumin 4.6 g/dL (3.5-5.0) 09/02/17 15:15 Additional comment: Normal labs aside from elevated Cr to 1.46 (baseline 0.8) - EKG Interpretation EKG: reg rate. stable incomplete RBBB. nonspec ST changes - Radiology Interpretation CT scan - head Status: image reviewed by me, report reviewed by me Additional comment: stable old small vessel disease- no acute CV disease FMR H&P: A/P - Problem List (1) Acute kidney failure, unspecified Current Visit: Yes Status: Acute Priority: High Qualifiers: Acute renal failure type: unspecified Qualified Code(s): N17.9 - Acute kidney failure, unspecified (2) Expressive aphasia Current Visit: Yes Status: Acute Priority: High Code(s): R47.01 - APHASIA (3) Right sided weakness Current Visit: Yes Status: Acute Priority: High Code(s): R53.1 - WEAKNESS (4) Chronic leg pain Current Visit: Yes Status: Acute Priority: Medium Code(s): M79.606 - PAIN IN LEG, UNSPECIFIED; G89.29 - OTHER CHRONIC PAIN Qualifiers: Laterality: right Qualified Code(s): M79.604 - Pain in right leg; G89.29 - Other chronic pain; G89.29 - Other chronic pain Comment: acute on chronic (5) Diabetes mellitus Current Visit: No Status: Chronic Priority: Low Code(s): E11.9 - TYPE 2 DIABETES MELLITUS WITHOUT COMPLICATIONS Qualifiers: Diabetes mellitus type: type 2 Diabetes mellitus rehab therapist insulin use: without snf use Diabetes mellitus complication status: without complication Qualified Code(s): E11.9 - Type 2 diabetes mellitus without complications (6) HLD (hyperlipidemia) Current Visit: No Status: Chronic Code(s): E78.5 - HYPERLIPIDEMIA, UNSPECIFIED Qualifiers: Hyperlipidemia type: unspecified Qualified Code(s): E78.5 - Hyperlipidemia , unspecified (7) HTN (hypertension) Current Visit: No Status: Chronic Code(s): I10 - ESSENTIAL (PRIMARY) HYPERTENSION Qualifiers: Hypertension type: essential hypertension Qualified Code(s): I10 - Essential (primary) hypertension (8) Anxiety Current Visit: No Status: Chronic Priority: Low Code(s): F41.9 - ANXIETY DISORDER, UNSPECIFIED (9) Depression Current Visit: No Status: Chronic Priority: Low Code(s): F32.9 - MAJOR DEPRESSIVE DISORDER, SINGLE EPISODE, UNSPECIFIED Qualifiers: Depression Type: major depressive disorder Major depression recurrence: recurrent Active/Remission status: currently active Major depression episode severity: unspecified Qualified Code(s): F33.9 - Major depressive disorder, recurrent, unspecified (10) GERD (gastroesophageal reflux disease) Current Visit: No Status: Chronic Priority: Low Code(s): K21.9 - GASTRO- ESOPHAGEAL REFLUX DISEASE WITHOUT ESOPHAGITIS Qualifiers: Esophagitis presence: esophagitis presence not specified Qualified Code(s) : K21.9 - Gastro-esophageal reflux disease without esophagitis - Plan 1) LESTER- unspecified at this time, but does appear to have low volume status and therefore may be pre-renal. pending u/a with micro, FENa/FEUrea. after urine collected, will then give IVF to rehydrate and await results for further management. consider renal US if not pre-renal. hold nephrotoxins. 2) expressive aphasia & Rt-sided weakness- exam inconsistent and low suspicion for acute CVA at this time. Neg CT head for acute event. s/p ASA. will check FLP & A1c for risk stratification, however chronic medical problems appear well- controlled by prior review of records. NPO until dysphagia screening performed. MRI in am to rule out CVA. If +, will tire changer aircraft. 3) HTN- well controlled. hold home meds, allow permissive HTN due to #2. 4) HLD- continue high-intensity statin. 5) DM2- hold metformin, accuchecks ACHS w/ mild SSI 6) GERD- home meds. 7) chronic RLE neuropathy- given pts concern and pain with Rt calf palpation, will check RLE US to rule out DVT, however low clinical suspicion. continue home gabapentin. 8) anxiety/depression- may be a component of #2. reassurance and continue zoloft. CODE status- FULL FEN- as above Disposition/LOS: Dispo- stable LOS- anticipate 2 day hospital stay FMR H&P: Upper Level - Plan Date/Time: 09/02/17 0953 I, [Rosa Whitmore DO], am the upper level resident.
[2017-09-02] MEDS ORDERED: Diazepam 2 MG TAB PO PRN (17:41)
[2017-09-02] MEDS ORDERED: Ondansetron HCl/PF 4 MG/2 ML Vial IVP PRN (17:41)
[2017-09-02] MEDS ORDERED: Milk Of Magnesia 30 ML UDCUP PO PRN (17:41)
[2017-09-02] MEDS ORDERED: Dextrose 5% in Water 1,000 ML IV PRN (17:41)
[2017-09-02] MEDS ORDERED: Ondansetron ODT 4 MG TAB PO PRN (17:41)
[2017-09-02] MEDS ORDERED: Dextrose 50% Abboject 50 ML SYRINGE SLOW IVP PRN (17:41)
[2017-09-02] MEDS ORDERED: Labetalol HCl 100 MG/20 ML VIAL SLOW IVP PRN (17:41)
[2017-09-02] MEDS ORDERED: Bisacodyl 10 MG SUPP PR PRN (17:41)
[2017-09-02] MEDS ORDERED: HumaLOG 300 UNITS/3 ML VIAL SC PRN ×2 (17:41)
[2017-09-02] MEDS ORDERED: hydrALAZINE 20 MG/ML VIAL SLOW IVP PRN (17:41)
[2017-09-02 17:44] VITALS: BMI 31.1
[2017-09-02 18:51] LABS: Troponin I Less than 0.010 ng/mL (< 0.028)
--- NOTE | 2017-09-02 19:38 | ULT ---
ULTRASOUND WITH DOPPLER DUPLEX VENOUS LOWER EXTREMITY RIGHT: 09/02/17 HISTORY: 56-year-old female with right lower extremity pain. TECHNIQUE: Color flow Doppler, spectral waveform analysis of pulsed Doppler, and stephens-scale imaging with rupinder delvin and augmentation, were used to evaluate the right common femoral, femoral, popliteal, posterior tibial, and superficial femoral, veins; and the proximal portions of the profunda femoral and greater saphenous, veins. FINDINGS: There is normal compressibility, demonstration of blood flow by color Doppler and pulsed Doppler, and response to augmentation, in all interrogated veins. IMPRESSION: Negative. No deep vein thrombosis in the right lower extremity. jn [] POS: [facility]
[2017-09-02] MEDS ORDERED: Sodium Chloride 0.9% 1,000 ML IV SCH (20:00)
[2017-09-02] MEDS: Famotidine 20 MG TAB PO SCH (20:16)
[2017-09-02] MEDS: Docusate 100 MG CAP PO SCH (20:17)
[2017-09-02] MEDS: Gabapentin 100 MG CAP PO SCH (20:17)
[2017-09-02] MEDS: Acetaminophen 325 MG TAB PO PRN (20:17)
[2017-09-02 20:51] LABS: Bilirubin Negative (Negative); Blood, Urine Negative (Negative); Clarity CLEAR (Clear); Glucose, Urine (Dipstick) Negative (Negative); Leukocyte Trace (Negative); Nitrite Negative (Negative); Protein, Urine (Dipstick) Negative (Neg-Trace); Specific Gravity, Urine 1.011 (1.002-1.036); Urobilinogen 0.2 mg/dL (0.2-1.0); pH, Urine 5.5 (5.0-9.0)
[2017-09-02 20:54] LABS: Bacteria/HPF None Seen HPF (None Seen); Hyaline Casts/LPF 0-3 HYALINE CAST LPF (0-3 Hyaline); RBC/HPF 0-3 HPF (0-3); Squamous Epithelial 0-3 HPF (0-3)
[2017-09-02] MEDS ORDERED: Atorvastatin Calcium 40 MG TAB PO SCH (21:00)
[2017-09-02 22:18] LABS: Creatinine, Urine 104.33 mg/dL (47-110)
[2017-09-02 22:19] LABS: Troponin I Less than 0.010 ng/mL (< 0.028)
[2017-09-03 05:52] LABS: #Basophils 0.1 thou/uL (0.0-0.2); #Eosinphils 0.2 thou/uL (0.0-0.7); #Lymphocytes 2.5 thou/uL (1.20-3.40); #Monocytes 0.5 thou/uL (0.11-0.59); #Neutrophils 2.8 thou/uL (1.40-6.50); %Basophils 1.9 % (0.0-1.0); %Monocytes 8.8 % (0.0-10.0); %Neutrophils 45.3 % (42.0-75.0); Hemoglobin 11.3 g/dL (12.0-16.0); Mean Corpuscular HGB CONC 33.2 g/dL (32.0-36.0); Mean Corpuscular Hemoglobin 30.3 pg (27.0-31.0); Mean Corpuscular Volume 91.3 fL (78.0-98.0); Mean Platelet Volume 8.3 fL (7.4-10.4); Platelet Count 232 thou/uL (130-400); Red Blood Cell (RBC) Count 3.72 mill/uL (4.20-5.40); White Blood Cell (WBC) Count 6.1 thou/uL (4.8-10.8)
[2017-09-03 06:21] LABS: Anion Gap 14 mmol/L (10-20); BUN (Urea Nitrogen) 15 mg/dL (9.8-20.1); Calc. Creatinine Clearance 89 mL/min (70-130); Calcium 9.5 mg/dL (7.8-10.44); Carbon Dioxide 27 mmol/L (22-29); Cardiac Risk 3.3 (Less than 4.5); Cholesterol 160 mg/dl (< 200 Desired); Estimated GFR-MDRD 72; Glucose 106 mg/dL (70-105); HDL Cholesterol 49 mg/dL (>60 Neg Risk); LDL Cholesterol, Calculated 84 mg/dL; Potassium 3.7 mmol/L (3.5-5.1); Sodium 141 mmol/L (136-145); Triglycerides 136 mg/dL (Less than 150)
[2017-09-03 06:28] LABS: Chloride 104 mmol/L (98-107)
[2017-09-03] MEDS: Famotidine 20 MG TAB PO SCH (08:35)
[2017-09-03] MEDS: Gabapentin 100 MG CAP PO SCH ×2 (08:35→14:31)
[2017-09-03] MEDS: Docusate 100 MG CAP PO SCH (08:35)
[2017-09-03] MEDS ORDERED: Enoxaparin Sodium 40 MG/0.4 ML SYRINGE SC SCH (09:00)
[2017-09-03] MEDS ORDERED: Aspirin 81 mg Enteric Coated Tablet PO SCH (09:00)
[2017-09-03] MEDS: Acetaminophen 325 MG TAB PO PRN (09:28)
--- NOTE | 2017-09-03 09:39 | PDOC.FM ---
- Subjective Subjective: Pt states R sided weakness is unchanged from yesterday. Her speech is back to normal. She slept well overnight. - Objective MAR Reviewed: Yes Vital Signs & Weight: Vital Signs (12 hours) Temp Pulse Resp BP Pulse Ox 09/03/17 07:17 97.5 F L 60 16 126/62 99 09/03/17 04:00 97.6 F 63 18 109/55 L 97 09/03/17 00:00 98.4 F 62 18 107/52 L 96 Weight Weight 87.679 kg I&O: 09/02/17 09/03/17 09/04/17 06:59 06:59 06:59 Intake Total 1100 Balance 1100 Result Diagrams: 09/03/17 05:23 09/03/17 05:23 EKG Reviewed by me: Yes Radiology Reviewed by me: Yes Radiology: RLE U/S: no DVT Phys Exam - Physical Examination Constitutional: NAD HEENT: PERRLA, moist MMs Neck: supple, full ROM no bruits Respiratory: no wheezing, no rales, no rhonchi, clear to auscultation bilateral Cardiovascular: RRR, no significant murmur Gastrointestinal: soft, non-tender, positive bowel sounds Musculoskeletal: no edema, pulses present Neurological: normal sensation, moves all 4 limbs RUE/RLE strength 3-4/5 with inconsistencies noted; patellar reflexes 2+/4 CN 2-12 intact with no facial droop; no delays in speech Psychiatric: normal affect, A&O x 3 Skin: no rash, normal turgor Dx/Plan (1) Right sided weakness Code(s): R53.1 - WEAKNESS Status: Acute Plan: Intermittent but chronic per hx. Exam noted to be inconsistent in admission notes and similar today. Seems more issue with effort. Brain CT showed chronic changes but nothing acute. RLE doppler neg for DVT. Due to continued c/o weakness in L MCA distribution, will obtain MRI today to r/o CVA. If neg, plan for d/c home with reassurance. Continue current regimen. PT/OT evaluation. (2) Expressive aphasia Code(s): R47.01 - APHASIA Status: Acute Plan: Speech deficit currently resolved. Await brain MRI. (3) Acute kidney failure, unspecified Status: Acute Qualifiers: Acute renal failure type: unspecified Qualified Code(s): N17.9 - Acute kidney failure, unspecified Plan: Prerenal on urine studies. Pt likely mildly dehydrated on admission. Repeat at 1200 today. (4) Sciatica of right side associated with disorder of lumbar spine Code(s): M53.86 - OTHER SPECIFIED DORSOPATHIES, LUMBAR REGION Status: Acute Plan: Pt receiving outpt workup/treatment with recent MRI showing L5-S1 disc protrusion abutting both outgoing nerve roots. Pt started on gabapentin. Tylenol 3 given temporarily 6 months ago for one month until further workup but has not been continued. Continue gabapentin and NSAIDs here. (5) Anxiety Code(s): F41.9 - ANXIETY DISORDER, UNSPECIFIED Status: Chronic Plan: Continue SSRI. Current complaints may be psychogenic in nature but await MRI. (6) Diabetes type 2, controlled Code(s): E11.9 - TYPE 2 DIABETES MELLITUS WITHOUT COMPLICATIONS Status: Chronic Plan: Holding metformin due to LESTER and potential need for contrast studies. BG normal overnight. Cont accuchecks. (7) HTN (hypertension) Code(s): I10 - ESSENTIAL (PRIMARY) HYPERTENSION Status: Chronic Qualifiers: Hypertension type: essential hypertension Qualified Code(s): I10 - Essential (primary) hypertension Plan: Continue home meds. No elevated pressures during admission. (8) HLD (hyperlipidemia) Code(s): E78.5 - HYPERLIPIDEMIA, UNSPECIFIED Status: Chronic Qualifiers: Hyperlipidemia type: unspecified Qualified Code(s): E78.5 - Hyperlipidemia , unspecified Plan: Continue statin. Fasting lipids well within normal range. No changes needed.
[2017-09-03] MEDS ORDERED: Ibuprofen 200 MG TAB PO PRN (10:35)
--- NOTE | 2017-09-03 11:02 | MRI ---
MRI OF THE BRAIN WITHOUT CONTRAST: HISTORY: Weakness for 2 days and difficulty with speech. The weakness is on the right side and the patient guzman s expressive aphasia. COMPARISON: CT brain 09/02/17. TECHNIQUE: Multiplanar, multisequence MRI images were obtained of the brain without contrast. FINDINGS: There are minimal scattered foci of high FLAIR signal in the subcortical white matter which are nonsp ecific but could be secondary to small-vessel ischemic disease. No restricted diffusion is seen to s uggest an acute infarction. There is no evidence of hydrocephalus, intracranial hemorrhage, or extra axial fluid collection. The expected flow voids are present. The corpus callosum, pituitary, and craniocervical junction are unremarkable. There is fluid in the bilateral mastoid air cells. The paranasal sinuses are well aerated. The calv arium and overlying soft tissues are unremarkable. IMPRESSION: 1. No evidence of acute intracranial abnormality. 2. Nonspecific foci of high FLAIR signal in the subcortical white matter could be secondary to early small-vessel ischemic disease. This can also be seen with vasculitity such as migraine headaches. POS: [facility]
[2017-09-03 11:49] VITALS: TEMP 97.7
[2017-09-03 12:17] VITALS: BP 135/67
--- NOTE | 2017-09-03 14:19 | PDOC.EVN ---
Event Note - Event Note Event Note: Brain MRI showed no acute abnormalities, possible early small vessel disease vs changes consistent with MRI. I spoke to the patient at 1415 with her present and informed her of the result. Offered discharge home. Patient and her were both agreeable. I recommended she continue her current meds and follow up with her PCP next week. They both verbalized understanding and agreement.
[2017-09-04] MEDS ORDERED: Lisinopril/Hydrochlorothiazide 20/25 mg Tablet PO SCH (09:00)
--- NOTE | 2017-09-04 17:53 | ADD-HP ---
ADDENDUM Please see the note by Dr. Whitmore for which I agree. The patient was seen and evaluated, examined an d discussed with the residents. HISTORY OF PRESENT ILLNESS: This is a fairly complicated 56-year-old -[place] female who int ermittently complains of right leg and right arm pain. I have actually saw her in the hospital a cou ple years ago when she had this complaint in the middle of the stress test. Not the best historian a s the history seems to change, but it sounds like a few days she was complaining of right leg pain, m aybe even back pain and then right arm pain and then started stuttering or slurring her speech, no fa cial droop is noted. Family brought her in, no swallowing difficulty. Initial CT was negative for s troeun and then it sounds like basically her symptoms are waxing and waning depending on who does the exam. She seemed to exhibit really good strength for me, although seemed not to be using her right s benjamin as much as her left side. She certainly was able to do things on her cell phone swipe, etc witho ut really thinking or having any kind of hesitation. She is not slurring her speech, but is stutteri ng and seems to have some word finding difficulty when talking to her. Physical therapy was able to walk her with a walker. She is generally walking, although she was able to get to and from the restr oom without a problem, so it is very complicated to really figure out if this really represents a str kathleen or potentially even some like a conversion reaction as it does sound like and she has history of that in the past. PAST MEDICAL HISTORY, PAST SURGICAL HISTORY, CURRENT HOME MEDICATIONS, REVIEW OF SYSTEMS, SOCIAL HIST ORY: All per the history and physical, reviewed in full. PHYSICAL EXAMINATION: VITAL SIGNS: Blood pressure is controlled. GENERAL: No apparent distress, is stuttering but again not truly a slurring of speech, it is more of just a classic stuttering and inability then to occasionally come up with words. HEENT: Otherwise is normal, I do not appreciate any kind of facial droop. CHEST: Clear. CARDIOVASCULAR: Regular rate and rhythm. No carotid bruits. ABDOMEN: Benign. EXTREMITIES: Show no edema. NEUROLOGIC: She does seem to not be using her right arm as much as her left arm, but then when I tete t her strength, it seems intact same with dorsiflexion and flexion of her ankles. Plantar flexion al so seems fine. Strength in the leg seems okay, although any movement of the leg seemed to cause quit e a bit of pain. IMAGING: An initial CT was normal and DVT that was ruled out by a Doppler ultrasound of the right lo wer extremity as well. Initial laboratory data showed just minimum anemia. No cardiac enzyme proble ms, just kind of borderline little bit of red blood cells, but her urine is actually fine as well. ASSESSMENT AND PLAN: Possible stroke versus conversion disorder. Plan is to get an MRI and we will evaluate her based on that. It sounds like she is walking better, talking better. No swallowing difficulties. Although MRI is normal, I think we will be able to send her out as again this seems to be a recurring issue on her and with the waxing and waning odd physic al findings, I almost wonder if this may represent more of a conversion disorder. We will continue s radha home medications in the meantime I will working her up.
--- NOTE | 2017-09-05 03:50 | DIS-2 ---
DATE OF ADMISSION: 09/02/2017 DATE OF DISCHARGE: 09/03/2017 RESIDENT: Jamal Duncan M.D. ADMITTING ATTENDING: Lonny Guidry M.D. DISCHARGE ATTENDING: Lonny Guidry M.D. CONSULTATIONS: None. PROCEDURES: 1. CT brain without contrast. No evidence of acute intracranial abnormality. 2. Right lower extremity Doppler ultrasound. No DVT. 3. Brain MRI, no acute intracranial abnormality. Nonspecific foci of high flair signal in the subcortical white matter could be secondary to early small vessel ischemic disease versus vascular disease seen and migraine headaches. PRIMARY DIAGNOSIS: Right-sided sciatica with associated disorder of lumbar spine. SECONDARY DIAGNOSES: 1. Expressive aphasia, resolved. 2. Right-sided weakness. 3. Acute kidney injury, resolved. 4. Anxiety. 5. Diabetes type 2, controlled. 6. Hypertension. 7. Hyperlipidemia. DISCHARGE MEDICATIONS: 1. Aspirin 81 mg. 2. Sertraline 100 mg. 3. Metformin 1000 mg b.i.d. 4. Atorvastatin 40 mg at bedtime. 5. Gabapentin 100 mg t.i.d. 6. Lisinopril/hydrochlorothiazide 20/25 mg. 7. Protonix 40 mg. DISCONTINUED MEDICATIONS: None. HISTORY OF PRESENT ILLNESS AND HOSPITAL COURSE: The patient is a 56-year-old -[place] female with past medical history of hypertension, hyperlipidemia, type 2 diabetes, and anxiety/depression, who presented with new onset right-sided weakness, difficulty speaking to the ED. Endorses mild right- sided upper and lower extremity weakness for the last 2 days. I did not appear functioning until she was in a grocery store the morning of admission. She endorses new onset right foot drag due to weakness and inability to use her right arm. She was also unable to find words. Her witnessed the event and denied any facial droop, drooling or slurred speech, although her speech was slowed. No history of CVA or TIA. No family history of CVA. No smoking history. CT head showed no acute event. The patient was given aspirin in the ED and admitted for evaluation. 1. Right-sided sciatica with disorder of lumbar spine. This is felt to be the most likely cause of her right leg pain and weakness. She has been receiving outpatient evaluation with her PCP with a recent MRI showing L5-S1 disk protrusion abutting both alcohol and nerve roots. She was started on gabapentin recently and is supposed to follow up with her PCP to continue titration. Overall stroke workup was negative. A brain MRI showed findings that may suggest early chronic small vessel disease, but no acute findings. The patient's exam was fairly inconsistent among providers. There was some question of whether psychogenic etiology was a play, see below for more information. 3. Expressive aphasia. Brain MRI gave no explanation for this symptom. Speech therapy evaluated and felt no issues with swallowing or mechanics of speech. She did display word finding difficulties on their evaluation. Of note , the patient has spoken complete sentences with normal speed and pros on my evaluation, but one hour later, she spoke with severe word finding difficulties and stuttering on repeat exam. Her deficits again had resolved when she was asking to leave the hospital. This was not felt to be neurologically associated. 4. Right-sided weakness. On further questioning, the patient's weakness is intermittent, but recurrent. Her exam was inconsistent that seemed more related to an issue with effort rather than actual strength. She endorsed walking to the bathroom without issues and no walkers or assistive devices were present in her room. However, her exam was such that her right side had almost strength or ability to elicit self-off the bed at times, while other times she displayed more normal strength. Physical therapy felt she would require inpatient rehab due to her deficits. However, a negative brain MRI, question of true deficits, and patient's desire to leave prompted discharge home. The patient was asked to come to our clinic to set up outpatient therapy if desired in 3 days. 5. Acute kidney injury. Prerenal with urine studies. Likely mildly dehydrated on admission, it was repeated and normal prior to discharge. IV fluids were given. 6. Anxiety continue patient on SSRI. Her complaints may be psychogenic in nature. 7. Diabetes type 2, controlled. Metformin was held due to acute kidney injury. Continued on discharge. 8. Hypertension. No elevated pressures during admission. No blood pressure adjustments felt to be required. 9. Hyperlipidemia. Continued statin. Fasting lipids were well within normal range with no changes needed. DISPOSITION: Stable. DISCHARGE INSTRUCTIONS: 1. Location: Home. 2. Diet: Heart-healthy and consisting carbohydrate. 3. Activity: As tolerated. The patient's family will care for her over the weekend and assist with follow up in our clinic. There is some question whether her strength is as limited as she suggests. If needed, patient to remain wheelchair-bound until follow up outpatient for home health with physical therapy. 4. Follow up with [facility] within 3-5 days. MTDD
== END 2017-09-03 16:31 | disposition home or self-care (01) | DRG 552 ==
LOC: ERS 14:37 → 2SE 17:40
PROVIDERS: ADMIT Student in an Organized Health Care Education/Training Program; ATTEND Student in an Organized Health Care Education/Training Program
DX: M51.16 Intervertebral disc disorders with radiculopathy, lumbar region (principal); N17.9 Acute kidney failure, unspecified; E86.0 Dehydration; R20.2 Paresthesia of skin; F41.8 Other specified anxiety disorders; G57.21 Lesion of femoral nerve, right lower limb; E11.9 Type 2 diabetes mellitus without complications; I10 Essential (primary) hypertension; E78.5 Hyperlipidemia, unspecified; K21.9 Gastro-esophageal reflux disease without esophagitis; G89.29 Other chronic pain; M79.604 Pain in right leg; Z79.84 Long term (current) use of oral hypoglycemic drugs; Z79.82 Long term (current) use of aspirin; Z79.899 Other long term (current) drug therapy; Z88.0 Allergy status to penicillin
CPT/HCPCS: 36415; 36416; 70450; 70551; 80048; 80053; 80061; 81001; 82553; 82570; 84300; 84484; 84540; 85025; 93005; 94760; A4216; G8978-GP-CK; G8979-GP-CI; G9174-GN-CL; G9175-GN-CJ; J1650

== ENCOUNTER → 2017-09-15 | Day surgery (SDC) | payer OTHER ==
[2017-09-13 10:08] VITALS: BMI 30.9
[~2017-09-15] MED LIST: Fentanyl 100 MCG/2 ML VIAL ONE; Iopamidol 370 76% 100 ML VIAL ONE; Lidocaine 1% (PF) 30 ML VIAL ONE; Midazolam HCl 2 mg/2 ml Vial ONE; traMADol HCl 50 MG TAB ONE
== END ==
LOC: CCL 06:11
PROVIDERS: ATTEND Internal Medicine Cardiovascular Disease
DX: I25.118 Atherosclerotic heart disease of native coronary artery with other forms of angina pectoris (principal); E78.00 Pure hypercholesterolemia, unspecified; I10 Essential (primary) hypertension; E11.9 Type 2 diabetes mellitus without complications; Z88.0 Allergy status to penicillin; Z79.82 Long term (current) use of aspirin; Z79.84 Long term (current) use of oral hypoglycemic drugs; Z79.899 Other long term (current) drug therapy
CPT/HCPCS: 36416; 93458; 99152; C1769; J1644; J2001; J2250; J3010

== ENCOUNTER 2017-10-28 15:05 | Emergency (ER) | payer OTHER ==
[2017-10-28] MEDS ORDERED: Morphine 4 MG/ML VIAL ONE (16:27)
[2017-10-28] MEDS ORDERED: Ondansetron ODT 4 MG TAB ONE (16:27)
== END 2017-10-28 17:10 | disposition home or self-care (01) ==
LOC: ERS 15:05
DX: M54.41 Lumbago with sciatica, right side (principal); E11.40 Type 2 diabetes mellitus with diabetic neuropathy, unspecified; E78.5 Hyperlipidemia, unspecified; I10 Essential (primary) hypertension; K21.9 Gastro-esophageal reflux disease without esophagitis; F41.9 Anxiety disorder, unspecified; F32.9 Major depressive disorder, single episode, unspecified; F20.9 Schizophrenia, unspecified
CPT/HCPCS: 96372; J2270; Q0162

== ENCOUNTER 2017-11-24 15:52 | Emergency (ER) | payer OTHER | END 2017-11-24 18:48 | disposition left against medical advice (07) | LOC: ERS 15:52 | DX: Z53.21 Procedure and treatment not carried out due to patient leaving prior to being seen by health care provider (principal) | CPT/HCPCS: 93005 ==

== ENCOUNTER 2018-04-23 13:47 | Emergency (ER) | payer OTHER ==
[2018-04-23 14:30] LABS: #Basophils 0.2 thou/uL (0.0-0.2); #Eosinphils 0.3 thou/uL (0.0-0.7); #Lymphocytes 2.3 thou/uL (1.20-3.40); #Monocytes 0.5 thou/uL (0.11-0.59); #Neutrophils 3.3 thou/uL (1.40-6.50); %Basophils 2.6 % (0.0-1.0); %Eosinophils 4.4 % (0.0-10.0); %Lymphocytes 34.6 % (21.0-51.0); %Neutrophils 50.4 % (42.0-75.0); Hemoglobin 14.2 g/dL (12.0-16.0); Mean Corpuscular HGB CONC 32.2 g/dL (32.0-36.0); Mean Corpuscular Hemoglobin 30.8 pg (27.0-31.0); Mean Corpuscular Volume 95.4 fL (78.0-98.0); Platelet Count 249 thou/uL (130-400); RBC Distribution Width 12.5 % (11.5-14.5); Red Blood Cell (RBC) Count 4.62 mill/uL (4.20-5.40); White Blood Cell (WBC) Count 6.6 thou/uL (4.8-10.8)
[2018-04-23 14:51] LABS: ALT (SGPT) 10 U/L (8-55); AST (SGOT) 17 U/L (5-34); Albumin 4.4 g/dL (3.5-5.0); Alkaline Phosphatase 86 U/L (40-150); Anion Gap 16 mmol/L (10-20); BUN (Urea Nitrogen) 11 mg/dL (9.8-20.1); Bilirubin, Total 0.3 mg/dL (0.2-1.2); Calc. Creatinine Clearance 0 mL/min (70-130); Calcium 9.6 mg/dL (7.8-10.44); Carbon Dioxide 21 mmol/L (22-29); Chloride 107 mmol/L (98-107); Estimated GFR-MDRD 83; Globulin 3.7 g/dL (2.4-3.5); Glucose 120 mg/dL (70-105); Potassium 3.2 mmol/L (3.5-5.1); Protein, Total 8.1 g/dL (6.0-8.3); Sodium 141 mmol/L (136-145)
--- NOTE | 2018-04-23 14:53 | RAD ---
SINGLE VIEW OF THE CHEST: COMPARISON: 07/22/2017. HISTORY: Chest pain radiating to the left arm that began 3 days ago. FINDINGS: Single view of the chest shows a normal sized cardiomediastinal silhouette. There is no evidence of c onsolidation, mass, or pleural effusion. The bones are unremarkable. IMPRESSION: No evidence of acute cardiopulmonary disease. POS: [facility]
[2018-04-23] MEDS ORDERED: Metoclopramide HCl 10 MG/2 ML VIAL ONE (15:14)
[2018-04-23] MEDS ORDERED: Aspirin 325 MG TAB ONE (15:14)
[2018-04-23] MEDS ORDERED: diphenhydrAMINE 50 MG/ML VIAL ONE (15:14)
[2018-04-23 18:08] LABS: Troponin I Less than 0.010 ng/mL (< 0.028)
[2018-04-23] MEDS ORDERED: Acetaminophen 500 MG TAB ONE (18:09)
[2018-04-23 18:47] LABS: CK (CPK) 179 U/L (29-168); Lipase 48 U/L (8-78)
== END 2018-04-23 18:20 | disposition home or self-care (01) ==
LOC: ERS 13:47
DX: R07.89 Other chest pain (principal); R51 Headache; E11.9 Type 2 diabetes mellitus without complications; E78.5 Hyperlipidemia, unspecified; I10 Essential (primary) hypertension; Z79.899 Other long term (current) drug therapy
CPT/HCPCS: 36415; 71045; 80053; 82550; 83690; 83880; 84484; 85025; 93005; 96365; 96375; J1200; J2765

== ENCOUNTER 2018-08-10 17:06 | Emergency (ER) | payer OTHER ==
--- NOTE | 2018-08-10 18:26 | RAD ---
PORTABLE CHEST: 08/10/18 HISTORY: Chest pain. Lung sung are clear of infiltrate. Heart size upper normal with mild vascular engorgement. Not sign ificantly changed from 04/23/18. IMPRESSION: No evidence of acute infiltrate. POS: [facility]
[2018-08-10 18:29] LABS: #Basophils 0.1 thou/uL (0.0-0.2); #Eosinphils 0.2 thou/uL (0.0-0.7); #Lymphocytes 2.7 thou/uL (1.20-3.40); #Monocytes 0.7 thou/uL (0.11-0.59); #Neutrophils 3.3 thou/uL (1.40-6.50); %Basophils 1.4 % (0.0-1.0); %Eosinophils 2.7 % (0.0-10.0); %Lymphocytes 38.9 % (21.0-51.0); %Monocytes 10.2 % (0.0-10.0); %Neutrophils 46.8 % (42.0-75.0); Hemoglobin 13.6 g/dL (12.0-16.0); Mean Corpuscular HGB CONC 32.2 g/dL (32.0-36.0); Mean Corpuscular Hemoglobin 30.2 pg (27.0-31.0); Mean Corpuscular Volume 93.7 fL (78.0-98.0); Mean Platelet Volume 9.2 fL (7.4-10.4); Platelet Count 239 thou/uL (130-400); Red Blood Cell (RBC) Count 4.49 mill/uL (4.20-5.40)
[2018-08-10] MEDS ORDERED: Ketorolac Tromethamine 30 MG/ML VIAL ONE (18:35)
[2018-08-10] MEDS ORDERED: Ondansetron PF 4 MG/2 ML Vial ONE (18:35)
== END 2018-08-10 20:02 | disposition home or self-care (01) ==
LOC: ERS 17:06
DX: S29.011A Strain of muscle and tendon of front wall of thorax, initial encounter (principal); K21.9 Gastro-esophageal reflux disease without esophagitis; E11.40 Type 2 diabetes mellitus with diabetic neuropathy, unspecified; E78.5 Hyperlipidemia, unspecified; I10 Essential (primary) hypertension; F41.9 Anxiety disorder, unspecified; F32.9 Major depressive disorder, single episode, unspecified; F25.9 Schizoaffective disorder, unspecified; Z79.82 Long term (current) use of aspirin; X58.XXXA Exposure to other specified factors, initial encounter
CPT/HCPCS: 71045; 83880; 84484; 85025; 93005; 96374; 96375; J1885; J2405

== ENCOUNTER 2018-09-17 17:59 | Emergency (ER) | payer OTHER ==
[2018-09-17] MEDS ORDERED: HYDROcodone/Acetaminophen 5/325 mg Tablet ONE (19:07)
== END 2018-09-17 19:27 | disposition home or self-care (01) ==
LOC: ERS 17:59
DX: K04.7 Periapical abscess without sinus (principal); K02.9 Dental caries, unspecified; F41.9 Anxiety disorder, unspecified; F31.9 Bipolar disorder, unspecified; F20.9 Schizophrenia, unspecified
CPT/HCPCS: 99282

== ENCOUNTER 2018-09-20 12:09 | Emergency (ER) | payer OTHER ==
[2018-09-20 12:39] LABS: #Basophils 0.2 thou/uL (0.0-0.2); #Eosinphils 0.3 thou/uL (0.0-0.7); #Lymphocytes 2.5 thou/uL (1.20-3.40); #Monocytes 0.6 thou/uL (0.11-0.59); #Neutrophils 3.1 thou/uL (1.40-6.50); %Basophils 2.4 % (0.0-1.0); %Eosinophils 5.2 % (0.0-10.0); %Lymphocytes 37.8 % (21.0-51.0); %Monocytes 8.3 % (0.0-10.0); %Neutrophils 46.3 % (42.0-75.0); Hemoglobin 12.3 g/dL (12.0-16.0); Mean Corpuscular HGB CONC 32.2 g/dL (32.0-36.0); Mean Corpuscular Hemoglobin 30.3 pg (27.0-31.0); Mean Corpuscular Volume 94.2 fL (78.0-98.0); Mean Platelet Volume 9.2 fL (7.4-10.4); Platelet Count 220 thou/uL (130-400); RBC Distribution Width 12.7 % (11.5-14.5); Red Blood Cell (RBC) Count 4.05 mill/uL (4.20-5.40); White Blood Cell (WBC) Count 6.6 thou/uL (4.8-10.8)
[2018-09-20 12:57] LABS: ALT (SGPT) 16 U/L (8-55); AST (SGOT) 23 U/L (5-34); Albumin 4.1 g/dL (3.5-5.0); Alkaline Phosphatase 84 U/L (40-150); Anion Gap 12 mmol/L (10-20); BUN (Urea Nitrogen) 15 mg/dL (9.8-20.1); Bilirubin, Total 0.3 mg/dL (0.2-1.2); CK (CPK) 483 U/L (29-168); Calc. Creatinine Clearance 0 mL/min (70-130); Calcium 9.2 mg/dL (7.8-10.44); Carbon Dioxide 25 mmol/L (22-29); Chloride 108 mmol/L (98-107); Estimated GFR-MDRD 75; Globulin 3.2 g/dL (2.4-3.5); Glucose 134 mg/dL (70-105); Potassium 3.8 mmol/L (3.5-5.1); Protein, Total 7.3 g/dL (6.0-8.3); Sodium 141 mmol/L (136-145)
== END 2018-09-20 13:56 | disposition left against medical advice (07) ==
LOC: ERS 12:09
DX: Z53.21 Procedure and treatment not carried out due to patient leaving prior to being seen by health care provider (principal)
CPT/HCPCS: 36415; 80053; 82550; 84484; 85025; 93005

== ENCOUNTER 2018-12-30 17:06 | Emergency (ER) | payer OTHER ==
[2018-12-30] MEDS ORDERED: Ketorolac Tromethamine 30 MG/ML VIAL ONE (17:31)
--- NOTE | 2018-12-30 17:46 | RAD ---
EXAM: 4 views of the left knee HISTORY: Knee pain COMPARISON: None FINDINGS: No knee effusion is seen. There is no evidence of acute fracture or dislocation. No signifi cant degenerative changes are seen. No soft tissue swelling is present. IMPRESSION: No evidence of acute osseous abnormality.
== END 2018-12-30 18:15 | disposition home or self-care (01) ==
LOC: ERS 17:06
DX: S86.912A Strain of unspecified muscle(s) and tendon(s) at lower leg level, left leg, initial encounter (principal); I10 Essential (primary) hypertension; E11.40 Type 2 diabetes mellitus with diabetic neuropathy, unspecified; Z79.899 Other long term (current) drug therapy; Y93.01 Activity, walking, marching and hiking
CPT/HCPCS: J1885

== ENCOUNTER 2019-04-04 12:28 | Emergency (ER) | payer OTHER ==
[2019-04-04] MEDS ORDERED: Ketorolac Tromethamine 60 MG/2 ML VIAL ONE (13:18)
== END 2019-04-04 13:48 | disposition home or self-care (01) ==
LOC: ERS 12:28
DX: S39.012A Strain of muscle, fascia and tendon of lower back, initial encounter (principal); E11.40 Type 2 diabetes mellitus with diabetic neuropathy, unspecified; I10 Essential (primary) hypertension; F41.9 Anxiety disorder, unspecified; F43.10 Post-traumatic stress disorder, unspecified; F32.9 Major depressive disorder, single episode, unspecified; I25.10 Atherosclerotic heart disease of native coronary artery without angina pectoris; X58.XXXA Exposure to other specified factors, initial encounter
CPT/HCPCS: 96372; 99281; J1885

== ENCOUNTER 2019-05-04 09:34 | Outpatient (CLI) | payer OTHER ==
--- NOTE | 2019-05-04 10:07 | MMO ---
Bilateral MAMMO Bilat Screen [facility]DI. CLINICAL HISTORY: Patient is 58 years old and is seen for screening. The patient has no family history of breast cancer. The patient has no personal history of cancer. VIEWS: The views performed were: bilateral craniocaudal and bilateral mediolateral oblique. FILMS COMPARED: The present examination has been compared to a prior imaging study performed at [facility] on 09/03/2015. This study has been interpreted with the assistance of computer-aided detection. MAMMOGRAM FINDINGS: The breasts are almost entirely fat. There are no suspicious masses, suspicious calcifications, or new areas of architectural distortion. IMPRESSION: THERE IS NO MAMMOGRAPHIC EVIDENCE OF MALIGNANCY. A ROUTINE FOLLOW-UP MAMMOGRAM IN 1 YEAR IS RECOMMENDED. ACR BI-RADS Category 1 - Negative MAMMOGRAPHY NOTE: 1. A negative mammogram report should not delay a biopsy if a dominant of clinically suspicious mass is present. 2. Approximately 10% to 15% of breast cancers are not detected by mammography. 3. Adenosis and dense breasts may obscure an underlying neoplasm. Reported by: RUTHIE CALLAWAY MD Electonically Signed: [id number]
== END 2019-05-04 09:35 | disposition home or self-care (01) ==
LOC: BICMAMMO 09:34
PROVIDERS: ATTEND Family Medicine Sports Medicine
DX: Z12.31 Encounter for screening mammogram for malignant neoplasm of breast (principal)
CPT/HCPCS: 77067

== ENCOUNTER 2020-05-05 11:34 | Outpatient (CLI) | payer OTHER ==
--- NOTE | 2020-05-05 13:33 | MMO ---
Bilateral MAMMO Bilat Screen DDI. CLINICAL HISTORY: Patient is 59 years old and is seen for screening. The patient has no family history of breast cancer. The patient has no personal history of cancer. VIEWS: The views performed were: bilateral craniocaudal and bilateral mediolateral oblique. FILMS COMPARED: The present examination has been compared to prior imaging studies performed at [facility] on 09/03/2015 and 05/04/2019. This study has been interpreted with the assistance of computer-aided detection. MAMMOGRAM FINDINGS: The breasts are almost entirely fat. There are no suspicious masses, suspicious calcifications, or new areas of architectural distortion. IMPRESSION: THERE IS NO MAMMOGRAPHIC EVIDENCE OF MALIGNANCY. A ROUTINE FOLLOW-UP MAMMOGRAM IN 1 YEAR IS RECOMMENDED. ACR BI-RADS Category 1 - Negative MAMMOGRAPHY NOTE: 1. A negative mammogram report should not delay a biopsy if a dominant of clinically suspicious mass is present. 2. Approximately 10% to 15% of breast cancers are not detected by mammography. 3. Adenosis and dense breasts may obscure an underlying neoplasm. Reported by: REJI ASHTON MD Electonically Signed: [id number]
== END 2020-05-05 11:35 | disposition home or self-care (01) ==
LOC: BICMAMMO 11:34
PROVIDERS: ATTEND Family Medicine Sports Medicine
DX: Z12.31 Encounter for screening mammogram for malignant neoplasm of breast (principal)
CPT/HCPCS: 77067

== ENCOUNTER 2021-08-28 11:44 | Emergency (ER) | payer OTHER ==
[2021-08-28] MEDS ORDERED: Albuterol 200 PUFF (6.7GM INHALER) ONE (12:26)
[2021-08-28] MEDS ORDERED: Ondansetron ODT 4 MG TAB ONE (12:26)
== END 2021-08-28 13:11 | disposition home or self-care (01) ==
LOC: ERS 11:44
DX: U07.1 COVID-19 (principal); I10 Essential (primary) hypertension; E11.40 Type 2 diabetes mellitus with diabetic neuropathy, unspecified; I25.10 Atherosclerotic heart disease of native coronary artery without angina pectoris; Z79.84 Long term (current) use of oral hypoglycemic drugs; Z79.899 Other long term (current) drug therapy
CPT/HCPCS: 71045; Q0162

== ENCOUNTER 2022-05-07 13:21 | Emergency (ER) | payer BC, OTHER ==
[~2022-05-07 13:21] MED LIST changes: -Fentanyl 100 MCG/2 ML VIAL ONE; -Iopamidol 370 76% 100 ML VIAL ONE; +Iopamidol-370 76% 500 ML 1 ML ONE; -Lidocaine 1% (PF) 30 ML VIAL ONE; -Midazolam HCl 2 mg/2 ml Vial ONE; -traMADol HCl 50 MG TAB ONE
[2022-05-07 13:48] LABS: #Basophils 0.1 thou/uL (0.0-0.2); #Eosinphils 0.3 thou/uL (0.0-0.7); #Monocytes 0.6 thou/uL (0.11-0.59); #Neutrophils 3.7 thou/uL (1.40-6.50); %Basophils 1.9 % (0.0-1.0); %Eosinophils 3.6 % (0.0-10.0); %Lymphocytes 39.3 % (21.0-51.0); %Monocytes 7.6 % (0.0-10.0); %Neutrophils 47.6 % (42.0-75.0); Hemoglobin 14.5 g/dL (12.0-16.0); Mean Corpuscular HGB CONC 32.8 g/dL (32.0-36.0); Mean Corpuscular Hemoglobin 31.2 pg (27.0-31.0); Mean Corpuscular Volume 95.2 fl (78.0-98.0); Platelet Count 258 10x3/uL (130-400); RBC Distribution Width 12.4 % (11.5-14.5); Red Blood Cell (RBC) Count 4.65 mill/uL (4.20-5.40); White Blood Cell (WBC) Count 7.7 10x3/uL (4.8-10.8)
[2022-05-07 14:24] LABS: ALT (SGPT) 17 U/L (8-55); AST (SGOT) 28 U/L (5-34); Albumin 4.6 g/dL (3.4-4.8); Alkaline Phosphatase 101 U/L (40-110); BUN (Urea Nitrogen) 10 mg/dL (9.8-20.1); Bilirubin, Total 0.4 mg/dL (0.2-1.2); Calc. Creatinine Clearance 0 mL/min (70-130); Calcium 10.2 mg/dL (7.8-10.44); Carbon Dioxide 16 mmol/L (23-31); Chloride 105 mmol/L (98-107); Estimated GFR 69; Globulin 5.3 g/dL (2.4-3.5); Glucose 121 mg/dL (80-115); Potassium 4.2 mmol/L (3.5-5.1); Protein, Total 9.9 g/dL (5.8-8.1); Sodium 137 mmol/L (136-145)
[2022-05-07 15:42] LABS: Bacteria/HPF None Seen HPF (None Seen); Bilirubin Negative (Negative); Blood, Urine Negative (Negative); Clarity Clear (Clear); Glucose, Urine (Dipstick) Normal (Negative); Ketone, Urine Negative (Negative); Leukocyte 500 Leu/uL (Negative); Nitrite Negative (Negative); Protein, Urine (Dipstick) 20 mg/dL (Neg-Trace); Specific Gravity, Urine 1.018 (1.002-1.036); Urobilinogen Normal mg/dL (Less than 2); WBC/HPF 21-50 HPF (0-3)
[2022-05-07] MEDS ORDERED: Labetalol HCl 100 MG/20 ML VIAL ONE (16:45)
== END 2022-05-07 18:55 | disposition home or self-care (01) ==
LOC: ERS 13:21
DX: K62.5 Hemorrhage of anus and rectum (principal); N39.0 Urinary tract infection, site not specified; I10 Essential (primary) hypertension; E11.9 Type 2 diabetes mellitus without complications; I25.10 Atherosclerotic heart disease of native coronary artery without angina pectoris
CPT/HCPCS: 36415; 74177; 80053; 81003; 81015; 85025; 86850; 86900; 86901; 96374; Q9967

== ENCOUNTER 2022-07-13 10:08 | Emergency (ER) | payer OTHER ==
[~2022-07-13 10:08] MED LIST changes: -Iopamidol-370 76% 500 ML 1 ML ONE; +Iopamidol-370 76% 500 ML MDV (1 ML CHARGE) ONE
[2022-07-13 11:27] LABS: #Basophils 0.1 thou/uL (0.0-0.2); #Eosinphils 0.3 thou/uL (0.0-0.7); #Lymphocytes 2.7 thou/uL (1.20-3.40); #Neutrophils 3.2 thou/uL (1.40-6.50); %Basophils 1.2 % (0.0-1.0); %Eosinophils 3.5 % (0.0-10.0); %Lymphocytes 36.9 % (21.0-51.0); %Monocytes 13.6 % (0.0-10.0); %Neutrophils 44.8 % (42.0-75.0); Hemoglobin 14.9 g/dL (12.0-16.0); Mean Corpuscular HGB CONC 34.3 g/dL (32.0-36.0); Mean Corpuscular Hemoglobin 31.7 pg (27.0-31.0); Mean Corpuscular Volume 92.5 fl (78.0-98.0); Mean Platelet Volume 9.4 fL (7.4-10.4); Platelet Count 235 10x3/uL (130-400); RBC Distribution Width 12.2 % (11.5-14.5); Red Blood Cell (RBC) Count 4.68 mill/uL (4.20-5.40); White Blood Cell (WBC) Count 7.2 10x3/uL (4.8-10.8)
[2022-07-13] MEDS ORDERED: Ondansetron PF 4 MG/2 ML Vial ONE (11:32)
[2022-07-13] MEDS ORDERED: Morphine 4 MG/ML VIAL ONE (11:32)
[2022-07-13 11:49] LABS: ALT (SGPT) 15 U/L (8-55); AST (SGOT) 21 U/L (5-34); Albumin 4.5 g/dL (3.4-4.8); Alkaline Phosphatase 97 U/L (40-110); Anion Gap 18 mmol/L (10-20); BUN (Urea Nitrogen) 18 mg/dL (9.8-20.1); Bilirubin, Total 0.4 mg/dL (0.2-1.2); Calc. Creatinine Clearance 0 mL/min (70-130); Calcium 9.7 mg/dL (7.8-10.44); Carbon Dioxide 22 mmol/L (23-31); Chloride 101 mmol/L (98-107); Estimated GFR 60; Globulin 4.3 g/dL (2.4-3.5); Glucose 124 mg/dL (80-115); Lipase 43 U/L (8-78); Potassium 4.1 mmol/L (3.5-5.1); Protein, Total 8.8 g/dL (5.8-8.1); Sodium 137 mmol/L (136-145)
[2022-07-13 15:10] LABS: Bilirubin Negative (Negative); Blood, Urine Trace (Negative); Clarity Turbid (Clear); Glucose, Urine (Dipstick) Normal (Negative); Ketone, Urine Negative (Negative); Leukocyte 500 Leu/uL (Negative); Nitrite Negative (Negative); Protein, Urine (Dipstick) Negative (Neg-Trace); Specific Gravity, Urine 1.027 (1.002-1.036); Urobilinogen Normal mg/dL (Less than 2); WBC/HPF Greater than 50 HPF (0-3); pH, Urine 5.5 (5.0-9.0)
[2022-07-13 15:12] LABS: Bacteria/HPF 1+ HPF (None Seen)
[2022-07-13] MEDS ORDERED: cefTRIAXone (ROCEPHIN) 1 GM VIAL ONE (15:48)
== END 2022-07-13 16:38 | disposition home or self-care (01) ==
LOC: ERS 10:08
DX: R10.31 Right lower quadrant pain (principal); N39.0 Urinary tract infection, site not specified; I25.10 Atherosclerotic heart disease of native coronary artery without angina pectoris; E11.9 Type 2 diabetes mellitus without complications; I10 Essential (primary) hypertension; Z79.899 Other long term (current) drug therapy
CPT/HCPCS: 36415; 74177; 80053; 81003; 81015; 83690; 85025; 96361; 96365; 96375; J0696; J2270; J2405; Q9967

== ENCOUNTER 2023-06-03 12:53 | Outpatient (CLI) | payer OTHER ==
[2023-06-03 14:57] LABS: #Basophils 0.09 10x3/uL (0.0-0.2); #Eosinphils 0.39 10x3/uL (0.0-0.5); #Monocytes 0.66 10x3/uL (0.0-1.1); #Neutrophils 2.67 10x3/uL (1.5-8.4); %Basophils 1.3 % (0.0-2.0); %Eosinophils 5.8 % (0.0-6.0); %Lymphocytes 42.7 % (18.0-47.0); %Monocytes 9.9 % (0.0-10.0); Hematocrit 40.6 % (34.9-44.5); Hemoglobin 13.5 g/dL (12.0-15.5); Mean Corpuscular HGB CONC 33.3 g/dL (32.0-36.0); Mean Corpuscular Hemoglobin 30.8 pg (27.0-33.0); Mean Corpuscular Volume 92.5 fl (81.6-98.3); Mean Platelet Volume 11.6 fl (7.4-10.4); Platelet Count 303 10x3/uL (150-450); RBC Distribution Width 12.8 % (11.5-14.5); Red Blood Cell (RBC) Count 4.39 10x6/uL (3.90-5.03); White Blood Cell (WBC) Count 6.7 10x3/uL (3.5-10.5)
[2023-06-03 15:10] LABS: Anion Gap 18 mmol/L (10-20); BUN (Urea Nitrogen) 16 mg/dL (9.8-20.1); Calc. Creatinine Clearance 0 mL/min (70-130); Calcium 9.9 mg/dL (7.8-10.44); Carbon Dioxide 20 mmol/L (23-31); Chloride 103 mmol/L (98-107); Estimated GFR 61; Glucose 129 mg/dL (80-115); Potassium 4.3 mmol/L (3.5-5.1); Sodium 137 mmol/L (136-145)
== END 2023-06-03 12:54 | disposition home or self-care (01) ==
LOC: LABBT 12:53
PROVIDERS: ATTEND Surgery
DX: Z01.818 Encounter for other preprocedural examination (principal); K64.4 Residual hemorrhoidal skin tags
CPT/HCPCS: 80048; 85025; 93005; 93010

== ENCOUNTER 2024-03-23 12:46 | Emergency (ER) | payer OTHER ==
[2024-03-23] MEDS ORDERED: HYDROcodone/Acetaminophen 5/325 mg Tablet ONE (13:52)
[2024-03-23 14:41] LABS: #Basophils 0.07 10x3/uL (0.0-0.2); %Basophils 0.9 % (0.0-1.0); %Eosinophils 4.3 % (0.0-10.0); %Lymphocytes 42.8 % (21.0-51.0); %Monocytes 8.8 % (0.0-10.0); %Neutrophils 43.1 % (42.0-75.0); Hematocrit 35.6 % (36.0-47.0); Hemoglobin 11.3 g/dL (12.0-16.0); Mean Corpuscular HGB CONC 31.7 g/dL (32.0-36.0); Mean Corpuscular Hemoglobin 29.2 pg (27.0-31.0); Platelet Count 268 10x3/uL (130-400); RBC Distribution Width 13.2 % (11.5-14.5); Red Blood Cell (RBC) Count 3.87 mill/uL (4.20-5.40)
[2024-03-23 14:58] LABS: ALT (SGPT) 12 U/L (8-55); AST (SGOT) 15 U/L (5-34); Albumin 4.2 g/dL (3.4-4.8); Alkaline Phosphatase 81 U/L (40-110); Anion Gap 11 mmol/L (10-20); BUN (Urea Nitrogen) 10 mg/dL (9.8-20.1); Bilirubin, Total 0.3 mg/dL (0.2-1.2); Calc. Creatinine Clearance 0 mL/min (70-130); Calcium 9.9 mg/dL (7.8-10.44); Carbon Dioxide 26 mmol/L (23-31); Chloride 105 mmol/L (98-107); Estimated GFR 86; Globulin 4.6 g/dL (2.4-3.5); Glucose 83 mg/dL (80-115); Lipase 20 U/L (8-78); Potassium 3.8 mmol/L (3.5-5.1); Protein, Total 8.8 g/dL (5.8-8.1); Sodium 138 mmol/L (136-145)
[2024-03-23 15:02] LABS: Troponin I Less than 0.010 ng/mL (< 0.028)
== END 2024-03-23 16:13 | disposition home or self-care (01) ==
LOC: ERS 12:46
DX: K59.00 Constipation, unspecified (principal); I10 Essential (primary) hypertension; E11.40 Type 2 diabetes mellitus with diabetic neuropathy, unspecified; Z79.899 Other long term (current) drug therapy; Z79.84 Long term (current) use of oral hypoglycemic drugs
CPT/HCPCS: 71045; 74176; 80053; 83690; 84484; 85025; 93005

== ENCOUNTER 2024-10-23 10:47 | Emergency (ER) | payer OTHER ==
[2024-10-23] MEDS ORDERED: Ondansetron PF 4 MG/2 ML Vial ONE (11:31)
[2024-10-23] MEDS ORDERED: Ketorolac Tromethamine 30 MG (1 mL) VIAL ONE (11:31)
[2024-10-23 11:46] LABS: #Basophils 0.07 10x3/uL (0.0-0.2); #Eosinophils 0.33 10x3/uL (0.0-0.7); #Monocytes 0.84 10x3/uL (0.11-0.59); #Neutrophils 3.14 10x3/uL (1.40-6.50); %Basophils 0.9 % (0.0-1.0); %Eosinophils 4.3 % (0.0-10.0); %Lymphocytes 42.6 % (21.0-51.0); %Monocytes 11.0 % (0.0-10.0); %Neutrophils 40.9 % (42.0-75.0); Hematocrit 34.3 % (36.0-47.0); Hemoglobin 10.7 g/dL (12.0-16.0); Mean Corpuscular Hemoglobin 29.2 pg (27.0-31.0); Mean Corpuscular Volume 93.7 fL (78.0-98.0); Platelet Count 284 10x3/uL (130-400); Red Blood Cell (RBC) Count 3.66 mill/uL (4.20-5.40); White Blood Cell (WBC) Count 7.66 10x3/uL (4.8-10.8)
[2024-10-23 11:53] LABS: Bacteria/HPF None Seen HPF (None Seen); CAUTI Indications for Culture Dysuria,urgency,freq; Glucose, Urine (Dipstick) Normal (Negative); Leukocyte 25 Leu/uL (Negative); Protein, Urine (Dipstick) Negative (Neg-Trace); RBC/HPF 0-3 HPF (0-3); Specific Gravity, Urine 1.010 (1.002-1.036); WBC/HPF 0-3 HPF (0-3)
[2024-10-23 11:54] LABS: Urine Culture Reflex No No
[2024-10-23 11:56] LABS: ALT (SGPT) 20 U/L (Less than 34); AST (SGOT) 28 U/L (11-34); Albumin 4.2 g/dL (3.1-4.5); Alkaline Phosphatase 103 U/L (40-110); Anion Gap 14 mmol/L (10-20); BUN (Urea Nitrogen) 14 mg/dL (9.8-20.1); Bilirubin, Total 0.3 mg/dL (0.3-1.2); Calc. Creatinine Clearance 0 mL/min (70-130); Calcium 8.9 mg/dL (7.8-10.44); Carbon Dioxide 24 mmol/L (23-31); Chloride 104 mmol/L (98-107); Globulin 4.0 g/dL (2.4-3.5); Glucose 108 mg/dL (80-115); Lipase 26 U/L (8-78); Potassium 4.0 mmol/L (3.5-5.1); Sodium 138 mmol/L (136-145)
== END 2024-10-23 12:20 | disposition home or self-care (01) ==
LOC: ERS 10:47
DX: R10.9 Unspecified abdominal pain (principal); I25.2 Old myocardial infarction; I10 Essential (primary) hypertension; E11.9 Type 2 diabetes mellitus without complications; I25.10 Atherosclerotic heart disease of native coronary artery without angina pectoris
CPT/HCPCS: 74176; 80053; 81001; 83690; 85025; 96374; 96375; J1885; J2405

== ENCOUNTER 2024-11-13 16:01 | Emergency (ER) | payer OTHER ==
[2024-11-13] MEDS ORDERED: Ketorolac Tromethamine 30 MG (1 mL) VIAL ONE (17:58)
== END 2024-11-13 18:32 | disposition home or self-care (01) ==
LOC: ERS 16:01
DX: S62.636A Displaced fracture of distal phalanx of right little finger, initial encounter for closed fracture (principal); I10 Essential (primary) hypertension; I25.10 Atherosclerotic heart disease of native coronary artery without angina pectoris; I25.2 Old myocardial infarction; E11.40 Type 2 diabetes mellitus with diabetic neuropathy, unspecified; W01.0XXA Fall on same level from slipping, tripping and stumbling without subsequent striking against object, initial encounter
CPT/HCPCS: 73130; J1885; 99283

== ENCOUNTER 2024-11-26 13:11 | Inpatient (IN) | payer OTHER ==
[2024-11-26] MEDS ORDERED: Ondansetron PF 4 MG/2 ML Vial ONE (13:33)
[2024-11-26] MEDS ORDERED: Iopamidol 370 76% 100 ML VIAL ONE (13:57)
[2024-11-26] MEDS ORDERED: Nitroglycerin 2% Ointment 1 INCH/1 GM Packet ONE (14:00)
[2024-11-26 14:02] LABS: #Basophils 0.09 10x3/uL (0.0-0.2); #Eosinophils 0.32 10x3/uL (0.0-0.7); #Monocytes 0.86 10x3/uL (0.11-0.59); #Neutrophils 3.94 10x3/uL (1.40-6.50); %Basophils 1.0 % (0.0-1.0); %Eosinophils 3.7 % (0.0-10.0); %Lymphocytes 39.7 % (21.0-51.0); %Monocytes 9.9 % (0.0-10.0); %Neutrophils 45.5 % (42.0-75.0); Hematocrit 39.1 % (36.0-47.0); Hemoglobin 12.4 g/dL (12.0-16.0); Mean Corpuscular Hemoglobin 29.2 pg (27.0-31.0); Mean Corpuscular Volume 92.2 fL (78.0-98.0); Platelet Count 249 10x3/uL (130-400); Red Blood Cell (RBC) Count 4.24 mill/uL (4.20-5.40); White Blood Cell (WBC) Count 8.68 10x3/uL (4.8-10.8)
[2024-11-26 14:16] LABS: INR-International Normal Ratio 1.1; PTT 32.2 sec (22.9-36.1); Prothrombin Time 13.8 sec (12.0-14.7)
[2024-11-26 14:21] LABS: ALT (SGPT) 18 U/L (Less than 34); AST (SGOT) 26 U/L (11-34); Albumin 4.5 g/dL (3.1-4.5); Alkaline Phosphatase 116 U/L (40-110); Anion Gap 15 mmol/L (10-20); BUN (Urea Nitrogen) 13 mg/dL (9.8-20.1); Bilirubin, Total 0.3 mg/dL (0.3-1.2); Calc. Creatinine Clearance 0 mL/min (70-130); Calcium 9.7 mg/dL (7.8-10.44); Carbon Dioxide 25 mmol/L (23-31); Chloride 102 mmol/L (98-107); Globulin 4.1 g/dL (2.4-3.5); Glucose 109 mg/dL (80-115); Lipase 23 U/L (8-78); Magnesium 2.0 mg/dL (1.6-2.6); Potassium 3.4 mmol/L (3.5-5.1); Sodium 139 mmol/L (136-145)
[2024-11-26] MEDS ORDERED: Senokot S 8.6-50 MG TAB PO PRN (19:48)
[2024-11-26] MEDS ORDERED: Heparin 5,000 UNITS/ML VIAL ONE (19:58)
[2024-11-26] MEDS ORDERED: Nitroglycerin 50 MG/250 ML BOT 0 ML ONE (19:59)
[2024-11-26] MEDS ORDERED: Heparin 10,000 UNITS/ 10 ML VIAL SLOW IVP SCH (20:00)
[2024-11-26] MEDS ORDERED: Nitroglycerin 50 MG/250 ML BOT 250 ML IVPB SCH (20:00)
[2024-11-26] MEDS ORDERED: Nitroglycerin 50 MG/250 ML BOT 250 ML ONE (20:46)
[2024-11-26] MEDS ORDERED: Lidocaine 1% (PF) 30 ML VIAL ONE (20:46)
[2024-11-26] MEDS ORDERED: Heparin 10,000 UNITS/ 10 ML VIAL ONE (20:46)
[2024-11-26] MEDS ORDERED: Glucagon 1 MG/ML KIT IM PRN (20:57)
[2024-11-26] MEDS ORDERED: Dextrose 50% Abboject 50 ML SYRINGE SLOW IVP PRN (20:57)
[2024-11-26] MEDS ORDERED: Adenosine 6 mg (2 mL) VIAL ONE (21:52)
[2024-11-26] MEDS ORDERED: Nitroglycerin 0.4 MG TAB (25 Tab Bottle) SL PRN (22:13)
[2024-11-26 23:15] VITALS: BMI 33.6
[2024-11-26] MEDS ORDERED: hydrALAZINE 20 MG/ML VIAL SLOW IVP PRN (23:33)
[2024-11-26 23:37] LABS: Hematocrit 36.0 % (36.0-47.0); Hemoglobin 11.4 g/dL (12.0-16.0); Platelet Count 252 10x3/uL (130-400)
[2024-11-26 23:56] LABS: PTT Greater than 250.0 sec (22.9-36.1)
[2024-11-27] MEDS: Magnesium 2 GM/50 ML(in water) 2 GM in Premix 1 BAG IVPB SCH (00:03)
[2024-11-27 01:59] LABS: #Basophils 0.07 10x3/uL (0.0-0.2); #Eosinophils 0.27 10x3/uL (0.0-0.7); #Monocytes 0.72 10x3/uL (0.11-0.59); #Neutrophils 4.27 10x3/uL (1.40-6.50); %Basophils 0.8 % (0.0-1.0); %Eosinophils 3.0 % (0.0-10.0); %Lymphocytes 41.0 % (21.0-51.0); %Monocytes 7.9 % (0.0-10.0); %Neutrophils 47.1 % (42.0-75.0); Hematocrit 35.6 % (36.0-47.0); Hemoglobin 11.2 g/dL (12.0-16.0); Mean Corpuscular Hemoglobin 29.5 pg (27.0-31.0); Mean Corpuscular Volume 93.7 fL (78.0-98.0); Platelet Count 245 10x3/uL (130-400); Red Blood Cell (RBC) Count 3.80 mill/uL (4.20-5.40); White Blood Cell (WBC) Count 9.07 10x3/uL (4.8-10.8)
[2024-11-27 02:36] LABS: Hb (HGBA1c) 4547.8287 umol/L
[2024-11-27 02:44] LABS: ALT (SGPT) 20 U/L (Less than 34); AST (SGOT) 88 U/L (11-34); Albumin 3.6 g/dL (3.1-4.5); Alkaline Phosphatase 85 U/L (40-110); Anion Gap 15 mmol/L (10-20); BUN (Urea Nitrogen) 9 mg/dL (9.8-20.1); Bilirubin, Total 0.3 mg/dL (0.3-1.2); Calc. Creatinine Clearance 121 mL/min (70-130); Calcium 8.7 mg/dL (7.8-10.44); Carbon Dioxide 22 mmol/L (23-31); Chloride 104 mmol/L (98-107); Globulin 3.6 g/dL (2.4-3.5); Glucose 114 mg/dL (80-115); Potassium 4.0 mmol/L (3.5-5.1); Sodium 137 mmol/L (136-145)
[2024-11-27] MEDS: Acetaminophen 325 MG TAB PO PRN (06:06)
[2024-11-27 06:07] LABS: Hematocrit 36.5 % (36.0-47.0); Hemoglobin 11.5 g/dL (12.0-16.0); Mean Corpuscular Hemoglobin 29.6 pg (27.0-31.0); Mean Corpuscular Volume 93.8 fL (78.0-98.0); Platelet Count 253 10x3/uL (130-400); Red Blood Cell (RBC) Count 3.89 mill/uL (4.20-5.40); White Blood Cell (WBC) Count 8.08 10x3/uL (4.8-10.8)
[2024-11-27 06:23] LABS: INR-International Normal Ratio 1.1; PTT 32.1 sec (22.9-36.1); Prothrombin Time 14.5 sec (12.0-14.7)
[2024-11-27] MEDS: Aspirin 81 mg Enteric Coated Tablet PO SCH (10:12)
[2024-11-27] MEDS: Lisinopril 20 MG TAB PO SCH (10:13)
[2024-11-27] MEDS: Mupirocin 1 GM TUBE TP SCH (10:14)
[2024-11-28 06:30] LABS: #Basophils 0.08 10x3/uL (0.0-0.2); #Eosinophils 0.38 10x3/uL (0.0-0.7); #Monocytes 1.27 10x3/uL (0.11-0.59); #Neutrophils 4.66 10x3/uL (1.40-6.50); %Basophils 0.8 % (0.0-1.0); %Eosinophils 3.9 % (0.0-10.0); %Lymphocytes 35.0 % (21.0-51.0); %Monocytes 12.9 % (0.0-10.0); %Neutrophils 47.2 % (42.0-75.0); Hematocrit 39.0 % (36.0-47.0); Hemoglobin 11.9 g/dL (12.0-16.0); Mean Corpuscular Hemoglobin 29.5 pg (27.0-31.0); Mean Corpuscular Volume 96.8 fL (78.0-98.0); Platelet Count 268 10x3/uL (130-400); Red Blood Cell (RBC) Count 4.03 mill/uL (4.20-5.40); White Blood Cell (WBC) Count 9.86 10x3/uL (4.8-10.8)
[2024-11-28] MEDS: Calcium Carbonate 500 MG ChewTAB PO PRN (10:06)
[2024-11-28 22:17] LABS: Hematocrit 34.2 % (36.0-47.0); Hemoglobin 10.8 g/dL (12.0-16.0); Platelet Count 231 10x3/uL (130-400)
[2024-11-29 04:53] LABS: #Basophils 0.06 10x3/uL (0.0-0.2); #Eosinophils 0.39 10x3/uL (0.0-0.7); #Monocytes 1.02 10x3/uL (0.11-0.59); #Neutrophils 2.86 10x3/uL (1.40-6.50); %Basophils 0.8 % (0.0-1.0); %Eosinophils 5.1 % (0.0-10.0); %Lymphocytes 43.7 % (21.0-51.0); %Monocytes 13.2 % (0.0-10.0); %Neutrophils 37.1 % (42.0-75.0); Hematocrit 34.2 % (36.0-47.0); Hemoglobin 10.7 g/dL (12.0-16.0); Mean Corpuscular Hemoglobin 29.3 pg (27.0-31.0); Mean Corpuscular Volume 93.7 fL (78.0-98.0); Platelet Count 225 10x3/uL (130-400); Red Blood Cell (RBC) Count 3.65 mill/uL (4.20-5.40); White Blood Cell (WBC) Count 7.71 10x3/uL (4.8-10.8)
[2024-11-30 04:31] LABS: #Basophils 0.08 10x3/uL (0.0-0.2); #Eosinophils 0.35 10x3/uL (0.0-0.7); #Monocytes 0.71 10x3/uL (0.11-0.59); #Neutrophils 3.05 10x3/uL (1.40-6.50); %Basophils 1.1 % (0.0-1.0); %Eosinophils 4.9 % (0.0-10.0); %Lymphocytes 40.6 % (21.0-51.0); %Monocytes 10.0 % (0.0-10.0); %Neutrophils 43.0 % (42.0-75.0); Hematocrit 33.1 % (36.0-47.0); Hemoglobin 10.2 g/dL (12.0-16.0); Mean Corpuscular Hemoglobin 29.3 pg (27.0-31.0); Mean Corpuscular Volume 95.1 fL (78.0-98.0); Platelet Count 240 10x3/uL (130-400); Red Blood Cell (RBC) Count 3.48 mill/uL (4.20-5.40); White Blood Cell (WBC) Count 7.11 10x3/uL (4.8-10.8)
[2024-11-30 04:44] LABS: Anion Gap 12 mmol/L (10-20); BUN (Urea Nitrogen) 16 mg/dL (9.8-20.1); Calc. Creatinine Clearance 88 mL/min (70-130); Calcium 8.8 mg/dL (7.8-10.44); Carbon Dioxide 26 mmol/L (23-31); Chloride 104 mmol/L (98-107); Glucose 122 mg/dL (80-115); Magnesium 2.0 mg/dL (1.6-2.6); Potassium 4.2 mmol/L (3.5-5.1); Sodium 138 mmol/L (136-145)
[2024-11-30] MEDS: Magnesium 2 GM/50 ML(in water) 2 GM in Premix 1 BAG IVPB SCH (08:54)
[2024-11-30] MEDS: Ondansetron PF 4 MG/2 ML Vial IVP PRN (11:35)
[2024-11-30 16:39] LABS: Hematocrit 37.1 % (36.0-47.0); Hemoglobin 11.5 g/dL (12.0-16.0); Platelet Count 246 10x3/uL (130-400)
[2024-11-30] MEDS: Heparin 10,000 UNITS/ 10 ML VIAL SLOW IVP SCH (16:48)
[2024-11-30] MEDS: PNEUMOC 20-VAL CONJ-DIP CRM/PF 0.5 ML SYRINGE IM ONE (18:17)
[2024-11-30 20:13] LABS: Hematocrit 35.8 % (36.0-47.0); Hemoglobin 11.3 g/dL (12.0-16.0); Platelet Count 257 10x3/uL (130-400)
[2024-12-01 05:28] LABS: #Basophils 0.08 10x3/uL (0.0-0.2); #Eosinophils 0.39 10x3/uL (0.0-0.7); #Monocytes 0.91 10x3/uL (0.11-0.59); #Neutrophils 3.06 10x3/uL (1.40-6.50); %Basophils 1.2 % (0.0-1.0); %Eosinophils 5.9 % (0.0-10.0); %Lymphocytes 32.0 % (21.0-51.0); %Monocytes 13.9 % (0.0-10.0); %Neutrophils 46.7 % (42.0-75.0); Hematocrit 35.0 % (36.0-47.0); Hemoglobin 10.9 g/dL (12.0-16.0); Mean Corpuscular Hemoglobin 29.4 pg (27.0-31.0); Mean Corpuscular Volume 94.3 fL (78.0-98.0); Platelet Count 251 10x3/uL (130-400); Red Blood Cell (RBC) Count 3.71 mill/uL (4.20-5.40); White Blood Cell (WBC) Count 6.56 10x3/uL (4.8-10.8)
[2024-12-01 05:56] LABS: Magnesium 2.3 mg/dL (1.6-2.6)
[2024-12-01] MEDS: Gabapentin 300 MG CAP PO SCH (11:17)
[2024-12-03 05:45] LABS: #Basophils 0.09 10x3/uL (0.0-0.2); #Eosinophils 0.44 10x3/uL (0.0-0.7); #Monocytes 0.95 10x3/uL (0.11-0.59); #Neutrophils 3.88 10x3/uL (1.40-6.50); %Basophils 1.1 % (0.0-1.0); %Eosinophils 5.2 % (0.0-10.0); %Lymphocytes 36.6 % (21.0-51.0); %Monocytes 11.2 % (0.0-10.0); %Neutrophils 45.5 % (42.0-75.0); Hematocrit 36.3 % (36.0-47.0); Hemoglobin 11.5 g/dL (12.0-16.0); Mean Corpuscular Hemoglobin 30.1 pg (27.0-31.0); Mean Corpuscular Volume 95.0 fL (78.0-98.0); Platelet Count 260 10x3/uL (130-400); Red Blood Cell (RBC) Count 3.82 mill/uL (4.20-5.40); White Blood Cell (WBC) Count 8.50 10x3/uL (4.8-10.8)
[2024-12-03 05:55] LABS: INR-International Normal Ratio 1.1; Prothrombin Time 14.0 sec (12.0-14.7)
[2024-12-03 05:56] LABS: PTT 36.4 sec (22.9-36.1)
[2024-12-03 06:04] LABS: ALT (SGPT) 15 U/L (Less than 34); AST (SGOT) 26 U/L (11-34); Albumin 3.8 g/dL (3.1-4.5); Alkaline Phosphatase 93 U/L (40-110); Anion Gap 11 mmol/L (10-20); BUN (Urea Nitrogen) 11 mg/dL (9.8-20.1); Bilirubin, Total 0.3 mg/dL (0.3-1.2); Calc. Creatinine Clearance 98 mL/min (70-130); Calcium 9.5 mg/dL (7.8-10.44); Carbon Dioxide 26 mmol/L (23-31); Chloride 104 mmol/L (98-107); Globulin 3.8 g/dL (2.4-3.5); Glucose 108 mg/dL (80-115); Potassium 4.2 mmol/L (3.5-5.1); Sodium 137 mmol/L (136-145)
[2024-12-03] MEDS ORDERED: Heparin 5,000 UNITS/ML VIAL ONE (09:22)
[2024-12-03] MEDS ORDERED: PROPOFOL 20 ML ONE (09:54)
[2024-12-03] MEDS ORDERED: PHENYLEPHRINE-NS 100 MCG/ML 10 ML SYRINGE ONE (10:35)
[2024-12-03] MEDS ORDERED: Ondansetron PF 4 MG/2 ML Vial ONE (10:44)
[2024-12-03] MEDS ORDERED: fentaNYL PF 100 MCG/2 ML SYRINGE ONE ×2 (12:09→12:54)
[2024-12-03] MEDS: Melatonin 3 MG TAB PO PRN (20:46)
[2024-12-03 21:42] VITALS: BMI 33.7
[2024-12-04] MEDS: Enoxaparin 40 MG (0.4 mL) SYRINGE SC SCH (21:09)
[2024-12-05 15:20] VITALS: BP 142/62; TEMP 97.5
== END 2024-12-05 15:30 | DRG 250 ==
LOC: ERS 13:11 → CCU 19:48 → 2NO 11-28 15:29
PROVIDERS: ADMIT Internal Medicine; ATTEND Internal Medicine
PROC: 4A023N7 Measurement of Cardiac Sampling and Pressure, Left Heart, Percutaneous Approach (ICD-10-PCS; principal; 2024-11-26)
PROC: 02703ZZ Dilation of Coronary Artery, One Artery, Percutaneous Approach (ICD-10-PCS; 2024-11-26)
PROC: 047M3Z1 Dilation of Right Popliteal Artery using Drug-Coated Balloon, Percutaneous Approach (ICD-10-PCS; 2024-12-03)
PROC: 047K3D1 Dilation of Right Femoral Artery with Intraluminal Device, using Drug-Coated Balloon, Percutaneous Approach (ICD-10-PCS; 2024-12-03)
PROC: B4101ZZ Fluoroscopy of Abdominal Aorta using Low Osmolar Contrast (ICD-10-PCS; 2024-12-03)
PROC: B41J1ZZ Fluoroscopy of Other Lower Arteries using Low Osmolar Contrast (ICD-10-PCS; 2024-12-03)
DX: I21.4 Non-ST elevation (NSTEMI) myocardial infarction (principal); I50.21 Acute systolic (congestive) heart failure; R04.2 Hemoptysis; I24.9 Acute ischemic heart disease, unspecified; I25.10 Atherosclerotic heart disease of native coronary artery without angina pectoris; F32.A Depression, unspecified; F41.9 Anxiety disorder, unspecified; Z91.011 Allergy to milk products; Z91.018 Allergy to other foods; Z98.890 Other specified postprocedural states; Z90.49 Acquired absence of other specified parts of digestive tract; E87.6 Hypokalemia; I11.0 Hypertensive heart disease with heart failure; E11.51 Type 2 diabetes mellitus with diabetic peripheral angiopathy without gangrene; E78.5 Hyperlipidemia, unspecified; Z79.899 Other long term (current) drug therapy
CPT/HCPCS: 36415; 36416; 70450; 71045; 72141; 72148; 75635; 80048; 80053; 83036; 83690; 83735; 83880; 84443; 84484; 85014; 85018; 85025; 85049; 85347; 85610; 85730; 92920; 93005; 93010; 93306; 93458; 93798; 96374; 96375; 96376; 99152; 99153; C1725; C1769; C1876; C1887; C1894; C1984; C2623; J0153; J0169; J0665; J1100; J1644; J1650; J2250; J2704; J3246; J3475; Q0162; Q9967

== ENCOUNTER 2025-01-29 11:17 | Emergency (ER) | payer OTHER ==
[2025-01-29 11:44] LABS: #Basophils 0.09 10x3/uL (0.0-0.2); #Eosinophils 0.29 10x3/uL (0.0-0.7); #Monocytes 0.51 10x3/uL (0.11-0.59); #Neutrophils 4.18 10x3/uL (1.40-6.50); %Basophils 1.3 % (0.0-1.0); %Eosinophils 4.3 % (0.0-10.0); %Lymphocytes 25.3 % (21.0-51.0); %Monocytes 7.5 % (0.0-10.0); %Neutrophils 61.3 % (42.0-75.0); Hematocrit 37.0 % (36.0-47.0); Hemoglobin 11.7 g/dL (12.0-16.0); Mean Corpuscular Hemoglobin 29.1 pg (27.0-31.0); Mean Corpuscular Volume 92.0 fL (78.0-98.0); Platelet Count 273 10x3/uL (130-400); Red Blood Cell (RBC) Count 4.02 mill/uL (4.20-5.40); White Blood Cell (WBC) Count 6.81 10x3/uL (4.8-10.8)
[2025-01-29] MEDS ORDERED: Ondansetron PF 4 MG/2 ML Vial ONE (11:54)
[2025-01-29] MEDS ORDERED: hydrALAZINE 20 MG/ML VIAL ONE (11:58)
[2025-01-29] MEDS ORDERED: diphenhydrAMINE 50 MG/ML VIAL ONE (11:58)
[2025-01-29] MEDS ORDERED: Metoclopramide HCl 10 MG (2 mL) VIAL ONE (11:58)
[2025-01-29 12:02] LABS: ALT (SGPT) 18 U/L (Less than 34); AST (SGOT) 34 U/L (11-34); Albumin 4.3 g/dL (3.1-4.5); Alkaline Phosphatase 103 U/L (40-110); Anion Gap 15 mmol/L (10-20); BUN (Urea Nitrogen) 6 mg/dL (9.8-20.1); Bilirubin, Total 0.4 mg/dL (0.3-1.2); Calc. Creatinine Clearance 0 mL/min (70-130); Calcium 9.6 mg/dL (7.8-10.44); Carbon Dioxide 23 mmol/L (23-31); Chloride 106 mmol/L (98-107); Globulin 3.8 g/dL (2.4-3.5); Glucose 165 mg/dL (80-115); Potassium 3.4 mmol/L (3.5-5.1); Sodium 141 mmol/L (136-145)
== END 2025-01-29 13:59 | disposition home or self-care (01) ==
LOC: ERS 11:17
DX: I10 Essential (primary) hypertension (principal); I25.2 Old myocardial infarction; E11.40 Type 2 diabetes mellitus with diabetic neuropathy, unspecified; I25.10 Atherosclerotic heart disease of native coronary artery without angina pectoris; Z79.899 Other long term (current) drug therapy
CPT/HCPCS: 70450; 71045; 80053; 84484; 85025; 93005; J0360; J1200; J2405; J2765; 96374; 96375

== ENCOUNTER 2025-01-31 11:31 | Emergency (ER) | payer OTHER ==
[2025-01-31] MEDS ORDERED: Acetaminophen 500 MG TAB ONE (12:26)
[2025-01-31] MEDS ORDERED: hydrALAZINE 20 MG/ML VIAL ONE (12:26)
[2025-01-31 12:32] LABS: #Basophils 0.08 10x3/uL (0.0-0.2); #Eosinophils 0.41 10x3/uL (0.0-0.7); #Monocytes 0.62 10x3/uL (0.11-0.59); #Neutrophils 3.64 10x3/uL (1.40-6.50); %Basophils 1.1 % (0.0-1.0); %Eosinophils 5.6 % (0.0-10.0); %Lymphocytes 35.0 % (21.0-51.0); %Monocytes 8.5 % (0.0-10.0); %Neutrophils 49.7 % (42.0-75.0); Hematocrit 36.0 % (36.0-47.0); Hemoglobin 11.6 g/dL (12.0-16.0); Mean Corpuscular Hemoglobin 29.4 pg (27.0-31.0); Mean Corpuscular Volume 91.4 fL (78.0-98.0); Platelet Count 276 10x3/uL (130-400); Red Blood Cell (RBC) Count 3.94 mill/uL (4.20-5.40); White Blood Cell (WBC) Count 7.32 10x3/uL (4.8-10.8)
[2025-01-31] MEDS ORDERED: Aspirin Chewable 81 MG TAB ONE (12:33)
[2025-01-31 12:49] LABS: ALT (SGPT) 14 U/L (Less than 34); AST (SGOT) 25 U/L (11-34); Albumin 4.4 g/dL (3.1-4.5); Alkaline Phosphatase 107 U/L (40-110); Anion Gap 12 mmol/L (10-20); BUN (Urea Nitrogen) 10 mg/dL (9.8-20.1); Bilirubin, Total 0.4 mg/dL (0.3-1.2); Calc. Creatinine Clearance 0 mL/min (70-130); Calcium 9.5 mg/dL (7.8-10.44); Carbon Dioxide 27 mmol/L (23-31); Chloride 106 mmol/L (98-107); Globulin 3.7 g/dL (2.4-3.5); Glucose 89 mg/dL (80-115); Potassium 3.6 mmol/L (3.5-5.1); Sodium 141 mmol/L (136-145)
[2025-01-31 14:23] LABS: Bacteria/HPF None Seen HPF (None Seen); CAUTI Indications for Culture Pelvic or flank pain; Glucose, Urine (Dipstick) Normal (Negative); Leukocyte Negative Leu/uL (Negative); Protein, Urine (Dipstick) Negative (Neg-Trace); RBC/HPF None Seen HPF (0-3); Specific Gravity, Urine 1.011 (1.002-1.036); WBC/HPF 0-3 HPF (0-3)
[2025-01-31 14:25] LABS: Urine Culture Reflex No No
== END 2025-01-31 16:07 | disposition home or self-care (01) ==
LOC: ERS 11:31
DX: I10 Essential (primary) hypertension (principal); I25.2 Old myocardial infarction; E11.42 Type 2 diabetes mellitus with diabetic polyneuropathy; I25.10 Atherosclerotic heart disease of native coronary artery without angina pectoris; Z79.899 Other long term (current) drug therapy
CPT/HCPCS: 70450; 71045; 80053; 81001; 84484; 85025; 93005; 96374; J0360